=== PATIENT | female | born 1960 | race Caucasian/White ===

== ENCOUNTER 2017-03-27 13:09 | Emergency (ER) | payer MEDICAID ==
[~2017-03-27] VITALS: Ht 175.3 cm; Wt 86.2 kg
[~2017-03-27 13:09] MED LIST: AMOX-559 PO; CEFA-162 PO; CEFD300C35 PO; CEFI400C PO; CEFPR500PT GT; CEFPR500PT PO; CEFU500T10 PO; CEFU500T50 PO; CEP500 PO; CHO4 PO; CLIN300C99 PO; CLIN40CR11 VG; CREON; Creon; DOXY-179 PO; ERYT-108 PO; FLUC150T40 PO; GUAI1CAP PO; HYDR-4309 PO; IBUP600T22 PO; IVER3TAB; KET10 PO; LEV100 PO; LEVO-3 PO; LEVO-85 PO; LEVO100T95 PO; LIPA249C7 PO; LOR5/325 PO; Lipitor; MAGN296S36 PO; METHO500 PO; METR-160 PO; METR70GE2 PV; MINO100C27 PO; MIR; MORP-23 PO; MOX400 PO; Morphine; NA P133E22 RC; ONDA4TAB PO; PENI-24 PO; PERM60CR17 TP; PRE50 PO; PROSTAT AWC PO; TIZA-1 PO; TRA50 PO; Vicodin; ZYZAL; [UNRECOGNIZED DRUG - CODE] PO; [UNRECOGNIZED DRUG - CODE] PO; [UNRECOGNIZED DRUG - OTHER]
[2017-03-27] MEDS ORDERED: GUAI600T57 PO (13:25)
[2017-03-27] MEDS ORDERED: CHOL10005 PO (13:25)
--- NOTE | 2017-03-27 13:52 | ER Report ---
History and Physical Time Seen By MD: 13:51 Hx. of Stated Complaint: patient has multiple complaints. she is reporting a "bad rip" in a large tendon in her left leg. she is also reporting abdominal pain and a sinus infection HPI/ROS CHIEF COMPLAINT: multiple complaints: abdominal pain, sinus problems, dental pain, muscle injury to medial thigh of the left leg, foot injury where she is concerned about fracture, questions about nutritional supplements, thinks she has a yeast infection after taking some old antibiotics. HISTORY OF PRESENT ILLNESS: This is a 56 year old female. I have seen her multiple times in the past. She has multiple complaints. She talks nonstop and it's difficult to interrupt her. Pressured speech and very tangential moving from one topic to the other. The main thing she appears to be here for is a concern about ongoing sinus problems. She states that typical antibiotics don't work for this which she is told this in the past. She has been fired from multiple doctors and does not have a primary care she can see and has not been to see an ear nose and throat because she says that they can never find the sinus infection. She also has ongoing dental problems, her complaints today are very similar what she is complained about in the past. She wants antibiotics for the sinus infection and the dental problem. She has been having some increased pain in the upper maxillary dental area the last week or 2. She is requesting several different antibiotics, including Avelox, Vantin, and Cedax. She also says she has a muscular injury to the medial thigh of the left leg and is requesting some Robaxin. She fell the other day and her foot folded underneath her and she assures she has a crush injury there and wants an x-ray for fractures. She also questions me about getting some nutritional supplements and she also thinks she had a yeast infection and she did take about 3 pills of an old antibiotic she had left and now has some irritation and discharge in the vaginal area. She says that she has worsening abdominal pain, points to the right abdomen and then across to the left. Pain is off and on. Has had adhesions in the past. Bowels with loose stools a few days ago, no bowel movement in about 48 hours. She also states that her sinus problem sometimes make her left eye water. She does spend a lot of time perseverating on her old illnesses and the fact that her body is "resistant to multiple antibiotics." She has a totally positive review of systems as any systemic ask about she has multiple complaints. Allergies: Coded Allergies: Soy (Verified Allergy, Severe, INTESTINAL BLEEDING, KIDNEY SWELLING, ) Sulfa (Sulfonamide Antibiotics) (Verified Allergy, Severe, SWELLING LIPS, RASH, 04/30/16) iodine (Verified Allergy, Severe, SWELLS THROAT, 04/30/16) ciprofloxacin (Unverified Allergy, Intermediate, UNKNOWN, 04/30/16) alcohol (Verified Allergy, Mild, TIGHTNESS IN THROAT, 04/30/16) oxycodone (Unverified Allergy, Mild, 04/30/16) prochlorperazine (Verified Allergy, Mild, DIZZY, 04/30/16) promethazine (Verified Allergy, Mild, 04/30/16) Gadolinium-Containing Contrast Medi (Verified Allergy, Unknown, 04/30/16) misoprostol (Verified Allergy, Unknown, 04/30/16) Uncoded Allergies: EGGS (Allergy, Mild, SWELLING, 12/07/06) LETTUCE (Allergy, Mild, SWELLS LIVER, 12/07/06) PEANUTS (Allergy, Mild, ABD CRAMPS, 12/07/06) CADAVER PRODUCTS (Adverse Reaction, Intermediate, 01/18/15) Home Meds Active Scripts Scopolamine (TRANSDERM-SCOP) 1.5 Mg Patch, 1.5 MG TD ONCE, #3 PATCH Prov:EVERT RANDALL MD 03/27/17 Polymyxin B Sulf/Trimethoprim (POLYTRIM EYE DROPS) 10 Ml Drops, 10 ML OP TID for 5 Days, #1 BOTTLE Prov:EVERT RANDALL MD 03/27/17 Ketorolac Tromethamine (KETOROLAC TROMETHAMINE) 10 Mg Tab, 10 MG PO Q6H Y for PAIN, #12 TAB 0 Refills Prov:IVA CHAPA MD 03/27/17 Methocarbamol (ROBAXIN-750) 750 Mg Tablet, 750 MG PO TID Y for MUSCLE SPASMS, # 30 TAB 0 Refills Prov:IVA CHAPA MD 03/27/17 Cefpodoxime Proxetil (CEFPODOXIME PROXETIL) 200 Mg Tablet, 200 MG PO BID, #20 TAB 0 Refills Prov:IVA CHAPA MD 03/27/17 Fluconazole (DIFLUCAN) 150 Mg Tablet, 150 MG PO QDAY, #1 TAB 0 Refills Prov:IVA CHAPA MD 03/27/17 Reported Medications Cholecalciferol (Vitamin D3) (VITAMIN D3) 1,000 Unit Tablet, 1000 UNIT PO, TAB 03/27/17 Guaifenesin (MUCINEX) 600 Mg Tablet.er, 600 MG PO 03/27/17 Discontinued Scripts Minocycline Hcl (MINOCYCLINE HCL) 100 Mg Capsule, 100 MG PO BID for infection, # 20 CAPSULE Prov:CELSO DUARTE DO 04/30/16 Reviewed Nurses Notes: Yes Hx Smoking: No Smoking Status: Former Smoker Exposure to Second Hand Smoke?: No Hx Substance Use Disorder: No Hx Alcohol Use: No Constitutional Physical Exam General Appearance: The patient is alert. Talking with pressured speech and tangential similar to previous encounters. Eyes: Pupils are equal, round. No pallor, injection or icterus. ENT: Mucous membranes are moist. Some redness around the upper molars/premolars on the upper left. Posterior oropharynx is normal. Normal nasal mucosa. Normal tympanic membranes and canals. Neck: Supple and non tender. Respiratory: Breathing easily and unlabored. Lungs are clear to auscultation. Cardiovascular: Regular rate and rhythm. No murmurs, gallops or rubs. Normal capillary refill. Gastrointestinal: Pain diffuse with palpation, no focal tenderness. Guarding everywhere, no rebound. Normal bowel sounds. Neurological: Alert and oriented x3. Normal sensation in the feel/lower extremities bilaterally. Skin: Warm and dry. Musculoskeletal: Tender throughout the left foot, but non-focal. Tender medial left thigh. No other tenderness in the left leg. Full range of motion. DIFFERENTIAL DIAGNOSIS: After history and physical exam, differential diagnosis was considered for a patient with multiple complaints. We will check an x-ray of the left foot. We can give her Robaxin for her leg strain. Discussed doing an abdominal x-ray, but patient wants a CT scan, so we can do this. Will treat dental changes noted on left upper area as noted. Medical Decision Making Data Points Laboratory Hematology Test 03/27/17 14:29 03/27/17 14:39 03/27/17 16:30 Red Blood Count 4.70 M/uL (4.17-5.56) Mean Corpuscular Volume 89.2 fL (80.0-96.0) Mean Corpuscular Hemoglobin 30.5 pg (26.0-33.0) Mean Corpuscular Hemoglobin Concent 34.2 g/dL (32.0-36.0) Red Cell Distribution Width 13.5 % (11.5-14.5) Mean Platelet Volume 8.7 fL (7.2-11.1) Neutrophils (%) (Auto) 63.7 % (39.4-72.5) Lymphocytes (%) (Auto) 27.1 % (17.6-49.6) Monocytes (%) (Auto) 5.4 % (4.1-12.4) Eosinophils (%) (Auto) 2.6 % (0.4-6.7) Basophils (%) (Auto) 1.2 % (0.3-1.4) Nucleated RBC Relative Count (auto) 0.0 /100WBC Neutrophils # (Auto) 4.0 K/uL (2.0-7.4) Lymphocytes # (Auto) 1.7 K/uL (1.3-3.6) Monocytes # (Auto) 0.3 K/uL (0.3-1.0) Eosinophils # (Auto) 0.2 K/uL (0.0-0.5) Basophils # (Auto) 0.1 K/uL (0.0-0.1) Nucleated RBC Absolute Count (auto) 0.00 K/uL Sodium Level 140 mmol/L (137-145) Potassium Level 4.1 mmol/L (3.5-5.0) Chloride Level 102 mmol/L (98-107) Carbon Dioxide Level 24 mmol/L (22-31) Blood Urea Nitrogen 19 mg/dl (7-18) Creatinine 0.90 mg/dl (0.52-1.04) Glomerular Filtration Rate Calc > 60.0 Random Glucose 91 mg/dl (75-110) Calcium Level 9.2 mg/dl (8.4-10.2) Total Bilirubin 0.6 mg/dl (0.2-1.3) Aspartate Amino Transf (AST/SGOT) 35 U/L (0-35) Alanine Aminotransferase (ALT/SGPT) 79 U/L (0-56) Alkaline Phosphatase 87 U/L (0-126) Total Protein 7.6 gm/dl (6.3-8.2) Albumin 4.4 g/dl (3.5-5.0) Urine Color Yellow Urine Clarity Clear Urine pH 5.0 pH (4.8-9.5) Urine Specific [place] 1.006 Urine Protein Negative mg/dL (NEGATIVE) Urine Glucose (UA) Negative mg/dL (NEGATIVE) Urine Ketones Negative mg/dL (NEGATIVE) Urine Blood Small (NEGATIVE) Urine Nitrite Negative (NEGATIVE) Urine Bilirubin Negative (NEGATIVE) Urine Urobilinogen Negative mg/dL (0.2-1.9) Urine Leukocyte Esterase Negative (NEGATIVE) Urine RBC 1 /HPF (0-2/HPF) Urine WBC None /HPF (0-5/HPF) Urine Squamous Epithelial Cells Few /LPF (</=FEW) Urine Bacteria Negative /HPF (NONE-FEW) Urine Mucus None /HPF (NONE-FEW) Influenza Virus Type A (PCR) Negative (NEGATIVE) Influenza Virus Type B (PCR) Negative (NEGATIVE) Chemistry Test 03/27/17 14:29 03/27/17 14:39 03/27/17 16:30 White Blood Count 6.2 k/uL (4.5-11.0) Red Blood Count 4.70 M/uL (4.17-5.56) Hemoglobin 14.3 g/dL (12.0-16.0) Hematocrit 41.9 % (34.0-47.0) Mean Corpuscular Volume 89.2 fL (80.0-96.0) Mean Corpuscular Hemoglobin 30.5 pg (26.0-33.0) Mean Corpuscular Hemoglobin Concent 34.2 g/dL (32.0-36.0) Red Cell Distribution Width 13.5 % (11.5-14.5) Platelet Count 260 K/uL (150-450) Mean Platelet Volume 8.7 fL (7.2-11.1) Neutrophils (%) (Auto) 63.7 % (39.4-72.5) Lymphocytes (%) (Auto) 27.1 % (17.6-49.6) Monocytes (%) (Auto) 5.4 % (4.1-12.4) Eosinophils (%) (Auto) 2.6 % (0.4-6.7) Basophils (%) (Auto) 1.2 % (0.3-1.4) Nucleated RBC Relative Count (auto) 0.0 /100WBC Neutrophils # (Auto) 4.0 K/uL (2.0-7.4) Lymphocytes # (Auto) 1.7 K/uL (1.3-3.6) Monocytes # (Auto) 0.3 K/uL (0.3-1.0) Eosinophils # (Auto) 0.2 K/uL (0.0-0.5) Basophils # (Auto) 0.1 K/uL (0.0-0.1) Nucleated RBC Absolute Count (auto) 0.00 K/uL Glomerular Filtration Rate Calc > 60.0 Calcium Level 9.2 mg/dl (8.4-10.2) Total Bilirubin 0.6 mg/dl (0.2-1.3) Aspartate Amino Transf (AST/SGOT) 35 U/L (0-35) Alanine Aminotransferase (ALT/SGPT) 79 U/L (0-56) Alkaline Phosphatase 87 U/L (0-126) Total Protein 7.6 gm/dl (6.3-8.2) Albumin 4.4 g/dl (3.5-5.0) Urine Color Yellow Urine Clarity Clear Urine pH 5.0 pH (4.8-9.5) Urine Specific [place] 1.006 Urine Protein Negative mg/dL (NEGATIVE) Urine Glucose (UA) Negative mg/dL (NEGATIVE) Urine Ketones Negative mg/dL (NEGATIVE) Urine Blood Small (NEGATIVE) Urine Nitrite Negative (NEGATIVE) Urine Bilirubin Negative (NEGATIVE) Urine Urobilinogen Negative mg/dL (0.2-1.9) Urine Leukocyte Esterase Negative (NEGATIVE) Urine RBC 1 /HPF (0-2/HPF) Urine WBC None /HPF (0-5/HPF) Urine Squamous Epithelial Cells Few /LPF (</=FEW) Urine Bacteria Negative /HPF (NONE-FEW) Urine Mucus None /HPF (NONE-FEW) Influenza Virus Type A (PCR) Negative (NEGATIVE) Influenza Virus Type B (PCR) Negative (NEGATIVE) Urinalysis Test 03/27/17 14:39 Urine Color Yellow Urine Clarity Clear Urine pH 5.0 pH (4.8-9.5) Urine Specific [place] 1.006 Urine Protein Negative mg/dL (NEGATIVE) Urine Glucose (UA) Negative mg/dL (NEGATIVE) Urine Ketones Negative mg/dL (NEGATIVE) Urine Blood Small (NEGATIVE) Urine Nitrite Negative (NEGATIVE) Urine Bilirubin Negative (NEGATIVE) Urine Urobilinogen Negative mg/dL (0.2-1.9) Urine Leukocyte Esterase Negative (NEGATIVE) Urine RBC 1 /HPF (0-2/HPF) Urine WBC None /HPF (0-5/HPF) Urine Squamous Epithelial Cells Few /LPF (</=FEW) Urine Bacteria Negative /HPF (NONE-FEW) Urine Mucus None /HPF (NONE-FEW) EKG/Imaging Imaging COMPUTED TOMOGRAPHY OF THE Abdomen and Pelvis without CONTRAST INDICATION: Left upper abdominal pain. TECHNIQUE: Contiguous axial 3.[address] images were obtained through the abdomen and pelvis without contrast. Coronal and sagittal reformatted images were submitted. COMPARISON: CT of January 06, 2012. FINDINGS: Lung bases: The lung bases are clear. Liver and hepatic vasculature: No apparent lesion on this noncontrast study. No ascites. Gallbladder and bile ducts: Normal gallbladder. Spleen: Normal spleen. Pancreas: Normal pancreas. Adrenals: Normal adrenals. Kidneys, ureters and bladder: A punctate calcification within or adjacent to the downstream left ureter on axial image 128 of series 2 could be a very small calculus (1-2 mm) versus a phlebolith. There are otherwise no urinary tract calculi. Normal-appearing bladder. No collecting system obstruction. Retroperitoneum and aorta: Mild aortic atherosclerosis. GI tract, mesentery and peritoneum: No bowel obstruction. No free fluid or free air. Normal appendix. There are a few diverticula but no findings of diverticulitis. Uterus and adnexa: Unremarkable uterus. Bones and soft tissues: No acute osseous abnormality. Anterior fusion hardware spans L5-S1. Posterior fusion hardware spans the same level. IMPRESSION: 1. A tiny calculus within or adjacent to the downstream left ureter could potentially be a nonobstructive stone versus a phlebolith. 2. Diverticulosis without findings of diverticulitis. 3. Normal appendix. One of the following dose optimization techniques was utilized in the performance of this exam: Automated exposure control; adjustment of the mA and/ or kV according to the patient's size; or use of an iterative reconstruction technique. Specific details can be referenced in the facility's radiology CT exam operational policy. Report Dictated By: Francisco Cannon MD at 03/27/2017 3:48 PM INDICATION: foot injury. DATE: 03/27/2017 3:43 PM. TECHNIQUE: FOOT 3 VIEW LEFT COMPARISON: None FINDINGS: Normal alignment without fracture or dislocation. Mild degenerative change at the first MTP joint. IMPRESSION: No evidence of fracture or dislocation. Report Dictated By: Francisco Cannon MD at 03/27/2017 3:43 PM ED Course/Re-evaluation ED Course Reviewed the x-ray results. Reviewed CT results as noted. Patient was given a shot of Rocephin and followed by a course of Cedax. Robaxin for muscle strain. Toradol for pain. Patient wanted to talk about other problems, but based on critical patients in the ER I did not have more time and had already spent large amount of time on non-urgent problems. She is discharged with these medicines. Also provided a prescription for diflucan. Patient initially refused to leave, but then left and checked right back in at admitting. Decision to Disposition Date: Mar 27, 2017 Decision to Disposition Time: 16:41 Depart Departure Latest Vital Signs Impression: Primary Impression: Abdominal pain Additional Impressions: Chronic urethritis Pain, dental Strain of foot, left Muscle strain of left thigh Condition: Improved Disposition: HOME OR SELF-CARE New Scripts Ketorolac Tromethamine (KETOROLAC TROMETHAMINE) 10 Mg Tab 10 MG PO Q6H Y for PAIN, #12 TAB 0 Refills Prov: IVA CHAPA MD 03/27/17 Methocarbamol (ROBAXIN-750) 750 Mg Tablet 750 MG PO TID Y for MUSCLE SPASMS, #30 TAB 0 Refills Prov: IVA CHAPA MD 03/27/17 Cefpodoxime Proxetil (CEFPODOXIME PROXETIL) 200 Mg Tablet 200 MG PO BID, #20 TAB 0 Refills Prov: IVA CHAPA MD 03/27/17 Fluconazole (DIFLUCAN) 150 Mg Tablet 150 MG PO QDAY, #1 TAB 0 Refills Prov: IVA CHAPA MD 03/27/17 Patient Instructions: Abdominal Pain (ED), Muscle Strain (ED) Additional Instructions: Take the antibiotic Vantin 200mg twice a day for 10 days. Take the antifungal medicine Diflucan 150mg one dose. For the leg and foot pain: Robaxin 750mg three times a day as needed for spasm and pain. Toradol 10mg, one every 6 hours as needed for pain. Problem Qualifiers Primary Impression: Abdominal pain Abdominal location: generalized Qualified Codes: R10.84 - Generalized abdominal pain Additional Impressions: Strain of foot, left Encounter type: initial encounter Qualified Codes: S96.912A - Strain of unspecified muscle and tendon at ankle and foot level, left foot, initial encounter Muscle strain of left thigh Encounter type: initial encounter Qualified Codes: S76.912A - Strain of unspecified muscles, fascia and tendons at thigh level, left thigh, initial encounter IVA CHAPA MD Mar 27, 2017 13:51
[2017-03-27 14:44] LABS: PLATELET COUNT, AUTOMATED 260 K/uL (150-450)
--- NOTE | 2017-03-27 15:52 | RADIOLOGY IMAGING REPORT ---
FACILITY: [facility] - [place] PATIENT NAME: Charo Block : 1960 MR: [id number] V: [id number] EXAM DATE: ORDERING PHYSICIAN: IVA CHAPA TECHNOLOGIST: Location: [facility] Patient: Charo Block : 1960 Visit/Account:[id number] Date of Sevice: 03/27/2017 INDICATION: foot injury. DATE: 03/27/2017 3:43 PM. TECHNIQUE: FOOT 3 VIEW LEFT COMPARISON: None FINDINGS: Normal alignment without fracture or dislocation. Mild degenerative change at the first MTP joint. IMPRESSION: No evidence of fracture or dislocation. Report Dictated By: Francisco Cannon MD at 03/27/2017 3:43 PM Report E-Signed By: Francisco Cannon MD at 03/27/2017 3:47 PM WSN:[id number]
--- NOTE | 2017-03-27 16:09 | RADIOLOGY IMAGING REPORT ---
FACILITY: [facility] - [place] PATIENT NAME: Charo Block : 1960 MR: [id number] V: [id number] EXAM DATE: ORDERING PHYSICIAN: IVA CHAPA TECHNOLOGIST: Location: [facility] Patient: Charo Block : 1960 Visit/Account:[id number] Date of Sevice: 03/27/2017 COMPUTED TOMOGRAPHY OF THE Abdomen and Pelvis without CONTRAST INDICATION: Left upper abdominal pain. TECHNIQUE: Contiguous axial 3.[address] images were obtained through the abdomen and pelvis without co ntrast. Coronal and sagittal reformatted images were submitted. COMPARISON: CT of January 06, 2012. FINDINGS: Lung bases: The lung bases are clear. Liver and hepatic vasculature: No apparent lesion on this noncontrast study. No ascites. Gallbladder and bile ducts: Normal gallbladder. Spleen: Normal spleen. Pancreas: Normal pancreas. Adrenals: Normal adrenals. Kidneys, ureters and bladder: A punctate calcification within or adjacent to the downstream left ure ter on axial image 128 of series 2 could be a very small calculus (1-2 mm) versus a phlebolith. There are otherwise no urinary tract calculi. Normal-appearing bladder. No collecting system obstruction. Retroperitoneum and aorta: Mild aortic atherosclerosis. GI tract, mesentery and peritoneum: No bowel obstruction. No free fluid or free air. Normal appendix. There are a few diverticula but no findings of diverticulitis. Uterus and adnexa: Unremarkable uterus. Bones and soft tissues: No acute osseous abnormality. Anterior fusion hardware spans L5-S1. Posterior fusion hardware spans the same level. IMPRESSION: 1. A tiny calculus within or adjacent to the downstream left ureter could potentially be a nonobstruc tive stone versus a phlebolith. 2. Diverticulosis without findings of diverticulitis. 3. Normal appendix. One of the following dose optimization techniques was utilized in the performance of this exam: Autom ated exposure control; adjustment of the mA and/or kV according to the patient's size; or use of an i terative reconstruction technique. Specific details can be referenced in the facility's radiology C T exam operational policy. Report Dictated By: Francisco Cannon MD at 03/27/2017 3:48 PM Report E-Signed By: Francisco Cannon MD at 03/27/2017 4:05 PM WSN:[id number]
[2017-03-27] MEDS ORDERED: FLUC150T40 PO (16:51)
[2017-03-27] MEDS ORDERED: METH-543 PO (16:51)
[2017-03-27] MEDS ORDERED: CEFP200T18 PO (16:51)
[2017-03-27] MEDS ORDERED: KET10 PO (16:51)
[2017-03-27 17:45] VITALS: BP 156/94
[2017-03-27] MEDS ORDERED: cefTRIAXone 1 GM VIAL IM ONE (17:50)
[2017-03-27] MEDS ORDERED: POLY10DR20 OP (18:48)
[2017-03-27] MEDS ORDERED: SCOT TD (18:48)
== END 2017-03-27 18:00 | disposition home or self-care (01) ==
LOC: ER 13:26
DX: R10.12 Left upper quadrant pain (principal); N34.2 Other urethritis; K08.89 Other specified disorders of teeth and supporting structures; S96.912A Strain of unspecified muscle and tendon at ankle and foot level, left foot, initial encounter; S76.912A Strain of unspecified muscles, fascia and tendons at thigh level, left thigh, initial encounter
CPT/HCPCS: 73630; 74176; 81001; 85025; 87502; 99284; J0696; 82040; 82247; 82310; 82374; 82435; 82565; 82947; 84075; 84132; 84155; 84295; 84450; 84460; 84520; 99282

== ENCOUNTER 2017-03-27 18:00 | Emergency (ER) | payer MEDICAID ==
[~2017-03-27 18:00] MED LIST changes: +CEFP200T18 PO; +CHOL10005 PO; +GUAI600T57 PO; +METH-543 PO
[2017-03-27] MEDS ORDERED: POLY10DR20 OP (18:48)
[2017-03-27] MEDS ORDERED: SCOT TD (18:48)
--- NOTE | 2017-03-27 18:49 | ER Report ---
History and Physical Time Seen By MD: 18:39 HPI/ROS CHIEF COMPLAINT: Left eye discomfort HISTORY OF PRESENT ILLNESS: Patient complains of left eye discomfort. She says is giving her vertigo. She believes she has conjunctivitis. She says Polytrim eye ointment has worked well in the past. She states she's been to the eye doctor multiple times for the same. She is not feeling like she can go to the eye doctor tomorrow because the discomfort is so severe. She denies foreign body exposure. She was here earlier today for different complaints and stated she forgot to address this complaint. No other concerns or complaints today. No vision loss. REVIEW OF SYSTEMS: Respiratory: No cough, no dyspnea. Cardiovascular: No chest pain, no palpitations. Gastrointestinal: No vomiting, no abdominal pain. Musculoskeletal: No back pain. Allergies: Coded Allergies: Soy (Verified Allergy, Severe, INTESTINAL BLEEDING, KIDNEY SWELLING, ) Sulfa (Sulfonamide Antibiotics) (Verified Allergy, Severe, SWELLING LIPS, RASH, 04/30/16) iodine (Verified Allergy, Severe, SWELLS THROAT, 04/30/16) ciprofloxacin (Unverified Allergy, Intermediate, UNKNOWN, 04/30/16) alcohol (Verified Allergy, Mild, TIGHTNESS IN THROAT, 04/30/16) oxycodone (Unverified Allergy, Mild, 04/30/16) prochlorperazine (Verified Allergy, Mild, DIZZY, 04/30/16) promethazine (Verified Allergy, Mild, 04/30/16) Gadolinium-Containing Contrast Medi (Verified Allergy, Unknown, 04/30/16) misoprostol (Verified Allergy, Unknown, 04/30/16) Uncoded Allergies: EGGS (Allergy, Mild, SWELLING, 12/07/06) LETTUCE (Allergy, Mild, SWELLS LIVER, 12/07/06) PEANUTS (Allergy, Mild, ABD CRAMPS, 12/07/06) CADAVER PRODUCTS (Adverse Reaction, Intermediate, 01/18/15) Home Meds Active Scripts Ketorolac Tromethamine (KETOROLAC TROMETHAMINE) 10 Mg Tab, 10 MG PO Q6H Y for PAIN, #12 TAB 0 Refills Prov:IVA CHAPA MD 03/27/17 Methocarbamol (ROBAXIN-750) 750 Mg Tablet, 750 MG PO TID Y for MUSCLE SPASMS, # 30 TAB 0 Refills Prov:IVA CHAPA MD 03/27/17 Cefpodoxime Proxetil (CEFPODOXIME PROXETIL) 200 Mg Tablet, 200 MG PO BID, #20 TAB 0 Refills Prov:IVA CHAPA MD 03/27/17 Fluconazole (DIFLUCAN) 150 Mg Tablet, 150 MG PO QDAY, #1 TAB 0 Refills Prov:IVA CHAPA MD 03/27/17 Reported Medications Cholecalciferol (Vitamin D3) (VITAMIN D3) 1,000 Unit Tablet, 1000 UNIT PO, TAB 03/27/17 Guaifenesin (MUCINEX) 600 Mg Tablet.er, 600 MG PO 03/27/17 Discontinued Scripts Minocycline Hcl (MINOCYCLINE HCL) 100 Mg Capsule, 100 MG PO BID for infection, # 20 CAPSULE Prov:CELSO DUARTE DO 04/30/16 Hx Smoking: No Smoking Status: Former Smoker Exposure to Second Hand Smoke?: No Hx Substance Use Disorder: No Hx Alcohol Use: No Physical Exam General Appearance: The patient is alert, has no immediate need for airway protection and no current signs of toxicity. No acute distress Eyes: Pupils equal and round no injection. No discharge. Fluorescein stain with Wood lamp was performed Respiratory: Chest is non tender, lungs are clear to auscultation. Cardiac: regular rate and rhythm no murmurs gallops or rubs Gastrointestinal: Abdomen is soft and non tender, no masses, bowel sounds normal. Musculoskeletal: Neck: Neck is supple and non tender. Extremities have full range of motion and are non tender. Skin: No rashes or lesions. Otherwise negative Neuro: Normal no dysmetria, normal gait DIFFERENTIAL DIAGNOSIS: After history and physical exam differential diagnosis was considered for conjunctivitis, sunburn, keratitis, viral versus bacterial. No signs of stroke or other serious intracranial process Medical Decision Making ED Course/Re-evaluation ED Course Eye exam performed and risk benefits of antibiotic eyedrops was discussed home medication use follow-up with ophthalmology as needed follow-up with PCP reasons to return were discussed Decision to Disposition Date: Mar 27, 2017 Decision to Disposition Time: 18:45 Depart Departure Impression: Primary Impression: Conjunctivitis, left eye Condition: Improved Disposition: HOME OR SELF-CARE New Scripts Scopolamine (TRANSDERM-SCOP) 1.5 Mg Patch 1.5 MG TD ONCE, #3 PATCH Prov: EVERT RANDALL MD 03/27/17 Polymyxin B Sulf/Trimethoprim (POLYTRIM EYE DROPS) 10 Ml Drops 10 ML OP TID for 5 Days, #1 BOTTLE Prov: EVERT RANDALL MD 03/27/17 Patient Instructions: Conjunctivitis (ED), Vertigo (ED) EVERT RANDALL MD Mar 27, 2017 18:49
[2017-03-27] MEDS ORDERED: PROPARACAINE 0.5% OP 15ML BTL OD ONE (18:50)
[2017-03-27] MEDS ORDERED: FLUORESCEIN SOD 1 MG 1 EA STRP OD ONE (18:50)
== END 2017-03-27 19:03 | disposition home or self-care (01) ==
LOC: ER 18:39
DX: H10.9 Unspecified conjunctivitis (principal)
CPT/HCPCS: 99282

== ENCOUNTER 2017-08-03 19:00 | Emergency (ER) | payer MEDICAID ==
[~2017-08-03 19:00] MED LIST changes: +POLY10DR20 OP; +SCOT TD
--- NOTE | 2017-08-03 19:15 | ER Report ---
History and Physical Time Seen By MD: 19:14 Hx. of Stated Complaint: PATIENT STATES THAT FELL WHILE HIKING/RUNNING TOO FAST 2 DAYS AGO; KIDNEYS, RT ARM AND WRIST HPI/ROS CHIEF COMPLAINT: head injury and fall HISTORY OF PRESENT ILLNESS: This is a 56 year old female. She had a head injury a few days ago. She was stretching a large bungee cord, about 7 feet, when the opposite end gave way and flew back and hit her in the head. She has had severe headache, nausea and dizziness since then. She had a small laceration on her frontal scalp from this as well. She is worried about fragments of bone going into her brain. Two days ago she had stopped her car to look at a beautiful sunset and heard a loud sound which startled her and she was running back to her car when she fell. She landed on her right side, arm tucked in by her ribs. Since then she is having right upper arm pain, right wrist pain, right rib pain , and flank pain. She says she has had broken ribs in the past and she does have some pain with breathing. She is more concerned that she has a kidney or liver laceration. She is requesting labs to look at this as well as imaging. She also tells me about recent dental problems she has been having, sinus problems (requesting an antibiotic), and some nutritional problems, parasitic infection from the [facility], and loss of villi in the intestines and nail problems associated with this. She has been treating this with some veterinary antifungals that she got as well as some courses of antibiotics she obtained from several doctors as well, and says that this seems to be improving. Allergies: Coded Allergies: Soy (Verified Allergy, Severe, INTESTINAL BLEEDING, KIDNEY SWELLING, ) Sulfa (Sulfonamide Antibiotics) (Verified Allergy, Severe, SWELLING LIPS, RASH, 04/30/16) iodine (Verified Allergy, Severe, SWELLS THROAT, 04/30/16) ciprofloxacin (Unverified Allergy, Intermediate, UNKNOWN, 04/30/16) alcohol (Verified Allergy, Mild, TIGHTNESS IN THROAT, 04/30/16) oxycodone (Unverified Allergy, Mild, 04/30/16) prochlorperazine (Verified Allergy, Mild, DIZZY, 04/30/16) promethazine (Verified Allergy, Mild, 04/30/16) Gadolinium-Containing Contrast Medi (Verified Allergy, Unknown, 04/30/16) misoprostol (Verified Allergy, Unknown, 04/30/16) Uncoded Allergies: EGGS (Allergy, Mild, SWELLING, 12/07/06) LETTUCE (Allergy, Mild, SWELLS LIVER, 12/07/06) PEANUTS (Allergy, Mild, ABD CRAMPS, 12/07/06) CADAVER PRODUCTS (Adverse Reaction, Intermediate, 01/18/15) Home Meds Active Scripts Moxifloxacin Hcl (AVELOX) 400 Mg Tab, 400 MG PO QDAY for 10 Days, #10 TAB 0 Refills Prov:IVA CHAPA MD 08/03/17 Methocarbamol (ROBAXIN-750) 750 Mg Tablet, 750 MG PO TID Y for MUSCLE SPASMS, # 30 TAB 0 Refills Prov:IVA CHAPA MD 08/03/17 Hydrocodone Bit/Acetaminophen (HYDROCODON-ACETAMINOPHEN 5-325) 1 Each Tablet, 1 EACH PO Q4H Y for PAIN, #12 TAB 0 Refills Prov:IVA CHAPA MD 08/03/17 Scopolamine (TRANSDERM-SCOP) 1.5 Mg Patch, 1.5 MG TD ONCE, #3 PATCH Prov:EVERT RANDALL MD 03/27/17 Polymyxin B Sulf/Trimethoprim (POLYTRIM EYE DROPS) 10 Ml Drops, 10 ML OP TID for 5 Days, #1 BOTTLE Prov:EVERT RANDALL MD 03/27/17 Ketorolac Tromethamine (KETOROLAC TROMETHAMINE) 10 Mg Tab, 10 MG PO Q6H Y for PAIN, #12 TAB 0 Refills Prov:IVA CHAPA MD 03/27/17 Methocarbamol (ROBAXIN-750) 750 Mg Tablet, 750 MG PO TID Y for MUSCLE SPASMS, # 30 TAB 0 Refills Prov:IVA CHAPA MD 03/27/17 Cefpodoxime Proxetil (CEFPODOXIME PROXETIL) 200 Mg Tablet, 200 MG PO BID, #20 TAB 0 Refills Prov:IVA CHAPA MD 03/27/17 Fluconazole (DIFLUCAN) 150 Mg Tablet, 150 MG PO QDAY, #1 TAB 0 Refills Prov:IVA CHAPA MD 03/27/17 Reported Medications Cholecalciferol (Vitamin D3) (VITAMIN D3) 1,000 Unit Tablet, 1000 UNIT PO, TAB 03/27/17 Guaifenesin (MUCINEX) 600 Mg Tablet.er, 600 MG PO 03/27/17 Reviewed Nurses Notes: Yes Hx Smoking: No Smoking Status: Former Smoker Exposure to Second Hand Smoke?: No Hx Substance Use Disorder: No Hx Alcohol Use: No Constitutional Vital Sign - Last 24 Hours 08/03/17 08/03/17 08/03/17 08/03/17 19:06 19:08 19:10 19:30 Temp 98.0 Pulse 79 Resp 18 B/P (MAP) 169/120 (136) 170/104 (126) 203/144 (163) Pulse Ox 95 O2 Delivery Room Air 08/03/17 08/03/17 08/03/17 08/03/17 20:00 20:30 21:12 21:30 Pulse 73 73 72 B/P (MAP) 161/92 (115) 173/96 (121) 171/107 (128) 168/103 (124) Pulse Ox 98 96 97 08/03/17 08/03/17 21:35 22:24 Pulse 72 B/P (MAP) 150/100 (117) Pulse Ox 93 Physical Exam General Appearance: The patient is alert. No acute distress. Eyes: Pupils are equal, round. No pallor, injection or icterus. ENT: Mucous membranes are moist. Head/scalp: She does have a slight laceration which is healing well, no signs of infection. This is on the frontal scalp just to the left of midline. Respiratory: The patient does have some pain on the right lateral chest wall, pain to take deep breaths. Cardiovascular: Regular rate and rhythm. No murmurs, gallops or rubs. Gastrointestinal: Abdomen is soft, has some tenderness in the right flank as well as right upper abdominal area. Nondistended. Guarding. Neurological: Alert and oriented x3. Skin: Warm and dry. Musculoskeletal: Patient does have some pain in the right mid humerus. Also pain in the right wrist and the radial aspect. DIFFERENTIAL DIAGNOSIS: After history and physical exam, differential diagnosis was considered for patient with a head injury, and a fall recently. We discussed doing a CT scan and x-rays. Medical Decision Making Data Points Result Diagram: 08/03/17195408/03/171954 Laboratory Hematology Test 08/03/17 19:45 08/03/17 19:55 Urine Color Straw Urine Clarity Clear Urine pH 7.0 pH (4.8-9.5) Urine Specific [place] 1.005 Urine Protein Negative mg/dL (NEGATIVE) Urine Glucose (UA) Negative mg/dL (NEGATIVE) Urine Ketones Negative mg/dL (NEGATIVE) Urine Blood Small (NEGATIVE) Urine Nitrite Negative (NEGATIVE) Urine Bilirubin Negative (NEGATIVE) Urine Urobilinogen Negative mg/dL (0.2-1.9) Urine Leukocyte Esterase Trace (NEGATIVE) Urine RBC 1 /HPF (0-2/HPF) Urine WBC <1 /HPF (0-5/HPF) Urine Squamous Epithelial Cells Moderate /LPF (</=FEW) Urine Bacteria Negative /HPF (NONE-FEW) Urine Mucus None /HPF (NONE-FEW) Red Blood Count 5.05 M/uL (4.17-5.56) Mean Corpuscular Volume 87.1 fL (80.0-96.0) Mean Corpuscular Hemoglobin 30.0 pg (26.0-33.0) Mean Corpuscular Hemoglobin Concent 34.5 g/dL (32.0-36.0) Red Cell Distribution Width 13.5 % (11.5-14.5) Mean Platelet Volume 8.5 fL (7.2-11.1) Neutrophils (%) (Auto) 63.4 % (39.4-72.5) Lymphocytes (%) (Auto) 27.0 % (17.6-49.6) Monocytes (%) (Auto) 6.2 % (4.1-12.4) Eosinophils (%) (Auto) 2.1 % (0.4-6.7) Basophils (%) (Auto) 1.3 % (0.3-1.4) Nucleated RBC Relative Count (auto) 0.0 /100WBC Neutrophils # (Auto) 3.9 K/uL (2.0-7.4) Lymphocytes # (Auto) 1.7 K/uL (1.3-3.6) Monocytes # (Auto) 0.4 K/uL (0.3-1.0) Eosinophils # (Auto) 0.1 K/uL (0.0-0.5) Basophils # (Auto) 0.1 K/uL (0.0-0.1) Nucleated RBC Absolute Count (auto) 0.00 K/uL Sodium Level 140 mmol/L (137-145) Potassium Level 3.7 mmol/L (3.5-5.0) Chloride Level 103 mmol/L (98-107) Carbon Dioxide Level 27 mmol/L (22-31) Blood Urea Nitrogen 16 mg/dl (7-18) Creatinine 0.90 mg/dl (0.52-1.04) Glomerular Filtration Rate Calc > 60.0 Random Glucose 105 mg/dl (75-110) Calcium Level 10.1 mg/dl (8.4-10.2) Total Bilirubin 0.6 mg/dl (0.2-1.3) Aspartate Amino Transf (AST/SGOT) 25 U/L (0-35) Alanine Aminotransferase (ALT/SGPT) 36 U/L (0-56) Alkaline Phosphatase 66 U/L (0-126) Total Protein 7.5 g/dl (6.3-8.2) Albumin 4.3 g/dl (3.5-5.0) Chemistry Test 08/03/17 19:45 08/03/17 19:55 Urine Color Straw Urine Clarity Clear Urine pH 7.0 pH (4.8-9.5) Urine Specific [place] 1.005 Urine Protein Negative mg/dL (NEGATIVE) Urine Glucose (UA) Negative mg/dL (NEGATIVE) Urine Ketones Negative mg/dL (NEGATIVE) Urine Blood Small (NEGATIVE) Urine Nitrite Negative (NEGATIVE) Urine Bilirubin Negative (NEGATIVE) Urine Urobilinogen Negative mg/dL (0.2-1.9) Urine Leukocyte Esterase Trace (NEGATIVE) Urine RBC 1 /HPF (0-2/HPF) Urine WBC <1 /HPF (0-5/HPF) Urine Squamous Epithelial Cells Moderate /LPF (</=FEW) Urine Bacteria Negative /HPF (NONE-FEW) Urine Mucus None /HPF (NONE-FEW) White Blood Count 6.2 k/uL (4.5-11.0) Red Blood Count 5.05 M/uL (4.17-5.56) Hemoglobin 15.2 g/dL (12.0-16.0) Hematocrit 44.0 % (34.0-47.0) Mean Corpuscular Volume 87.1 fL (80.0-96.0) Mean Corpuscular Hemoglobin 30.0 pg (26.0-33.0) Mean Corpuscular Hemoglobin Concent 34.5 g/dL (32.0-36.0) Red Cell Distribution Width 13.5 % (11.5-14.5) Platelet Count 256 K/uL (150-450) Mean Platelet Volume 8.5 fL (7.2-11.1) Neutrophils (%) (Auto) 63.4 % (39.4-72.5) Lymphocytes (%) (Auto) 27.0 % (17.6-49.6) Monocytes (%) (Auto) 6.2 % (4.1-12.4) Eosinophils (%) (Auto) 2.1 % (0.4-6.7) Basophils (%) (Auto) 1.3 % (0.3-1.4) Nucleated RBC Relative Count (auto) 0.0 /100WBC Neutrophils # (Auto) 3.9 K/uL (2.0-7.4) Lymphocytes # (Auto) 1.7 K/uL (1.3-3.6) Monocytes # (Auto) 0.4 K/uL (0.3-1.0) Eosinophils # (Auto) 0.1 K/uL (0.0-0.5) Basophils # (Auto) 0.1 K/uL (0.0-0.1) Nucleated RBC Absolute Count (auto) 0.00 K/uL Glomerular Filtration Rate Calc > 60.0 Calcium Level 10.1 mg/dl (8.4-10.2) Total Bilirubin 0.6 mg/dl (0.2-1.3) Aspartate Amino Transf (AST/SGOT) 25 U/L (0-35) Alanine Aminotransferase (ALT/SGPT) 36 U/L (0-56) Alkaline Phosphatase 66 U/L (0-126) Total Protein 7.5 g/dl (6.3-8.2) Albumin 4.3 g/dl (3.5-5.0) Urinalysis Test 08/03/17 19:45 Urine Color Straw Urine Clarity Clear Urine pH 7.0 pH (4.8-9.5) Urine Specific [place] 1.005 Urine Protein Negative mg/dL (NEGATIVE) Urine Glucose (UA) Negative mg/dL (NEGATIVE) Urine Ketones Negative mg/dL (NEGATIVE) Urine Blood Small (NEGATIVE) Urine Nitrite Negative (NEGATIVE) Urine Bilirubin Negative (NEGATIVE) Urine Urobilinogen Negative mg/dL (0.2-1.9) Urine Leukocyte Esterase Trace (NEGATIVE) Urine RBC 1 /HPF (0-2/HPF) Urine WBC <1 /HPF (0-5/HPF) Urine Squamous Epithelial Cells Moderate /LPF (</=FEW) Urine Bacteria Negative /HPF (NONE-FEW) Urine Mucus None /HPF (NONE-FEW) EKG/Imaging Imaging EXAMINATION: Right wrist, 3 views 08/03/2017 7:37 PM HISTORY: fall, right upper arm and wrist pain COMPARISON: 01/18/2015. Right hand 03/17/2015 FINDINGS: Visualized bony structures are intact and anatomically aligned without fracture or other acute osseous abnormality evident. Minimal spurring along the first CMC. IMPRESSION: No acute bony injury. Report Dictated By: Jamie Kim MD at 08/03/2017 8:35 PM EXAMINATION: Right humerus, 2 views 08/03/2017 7:37 PM HISTORY: fall, right upper arm and wrist pain COMPARISON: None FINDINGS: Visualized bony structures are intact and anatomically aligned without fracture or other acute osseous abnormality evident. Mild spurring at AC joint and some heterogeneity in the humeral head which can be secondary evidence of cuff pathology. IMPRESSION: No acute bony injury. Degenerative changes in the shoulder. Report Dictated By: Jamie Kim MD at 08/03/2017 8:33 PM EXAMINATION: PA and lateral chest with dedicated right rib views. HISTORY: Fall. Right rib pain. COMPARISON: 04/15/2015. FINDINGS: The lungs are clear. Normal and symmetric lung volumes. No focal consolidation. No pleural effusion or pneumothorax. Normal cardiomediastinal silhouette, with normal heart size and pulmonary vascularity. Right rib views demonstrate a nondisplaced fracture of the lateral right 10th rib. No other discrete rib fracture is visualized. No other acute osseous findings in the chest. IMPRESSION: 1. Nondisplaced fracture of the lateral right 10th rib. 2. No other acute findings in the chest. 3. The lungs are clear. No pneumothorax or pleural effusion. Report Dictated By: Steven Trevino MD at 08/03/2017 9:19 PM ED Course/Re-evaluation ED Course CT scan is unavailable. Labs showed a normal CBC, metabolic panel, and urinalysis showed small blood on dipstick but only one red cell on microscopic with a lot of squamous epithelial cells. I reviewed these findings with the patient. She had an initial elevated blood pressure which came down later. Overall vital signs are stable. I reviewed this with the patient and indicated that the CT scan is unavailable. The humerus x-ray and wrist x-ray were negative. We did do a rib series which showed a lateral right nondisplaced rib fracture. She is very concerned that there is something more going on. I indicated that if she felt like she needed to have a CT scan today she could always travel to [facility] and be seen in the ER there however given the fact that labs and vital signs are stable, I did not think that this needed to be done emergently, but if she felt otherwise she could certainly go do this. She indicated that she could not do this because she has a flat tire. She asked a lot of questions about injury to liver, kidney, abdominal area, and ribs and I answered these to the best that I could. I did provide some Toradol and Robaxin to help with pain. Also send her home with some hydrocodone to use for pain for the rib fracture. She had a lot of other questions about multiple other subjects that I tried to answer the best I could. She did ask for a couple of prescriptions for a couple of nutritional supplements that she is used in the past and I did provide these prescriptions for her as well. Decision to Disposition Date: Aug 03, 2017 Decision to Disposition Time: 21:52 Depart Departure Latest Vital Signs Vital Signs Date Time Temp Pulse Resp B/P (MAP) Pulse Ox O2 Delivery O2 Flow Rate FiO2 08/03/17 22:24 150/100 (117) 08/03/17 21:35 72 93 08/03/17 19:08 98.0 18 Room Air Impression: Primary Impression: Right rib fracture Additional Impressions: Contusion of wrist, right Contusion of right arm Condition: Improved Disposition: HOME OR SELF-CARE New Scripts Moxifloxacin Hcl (AVELOX) 400 Mg Tab 400 MG PO QDAY for 10 Days, #10 TAB 0 Refills Prov: IVA CHAPA MD 08/03/17 Methocarbamol (ROBAXIN-750) 750 Mg Tablet 750 MG PO TID Y for MUSCLE SPASMS, #30 TAB 0 Refills Prov: IVA CHAPA MD 08/03/17 Hydrocodone Bit/Acetaminophen (HYDROCODON-ACETAMINOPHEN 5-325) 1 Each Tablet 1 EACH PO Q4H Y for PAIN, #12 TAB 0 Refills Prov: IVA CHAPA MD 08/03/17 Patient Instructions: Contusion in Adults (ED), Rib Fracture (GEN) Problem Qualifiers Primary Impression: Right rib fracture Encounter type: initial encounter Rib fracture type: single rib Fracture type: closed Qualified Codes: S22.31XA - Fracture of one rib, right side, initial encounter for closed fracture Additional Impressions: Contusion of wrist, right Encounter type: initial encounter Qualified Codes: S60.211A - Contusion of right wrist, initial encounter Contusion of right arm Encounter type: initial encounter Qualified Codes: S40.021A - Contusion of right upper arm, initial encounter IVA CHAPA MD Aug 03, 2017 19:14
[2017-08-03] MEDS ORDERED: METHOCARBAMOL 500 MG TAB PO ONE ×2 (19:45→21:50)
[2017-08-03] MEDS ORDERED: KETOROLAC TROM 10MG TAB PO ONE (19:45)
[2017-08-03 20:03] LABS: PLATELET COUNT, AUTOMATED 256 K/uL (150-450)
--- NOTE | 2017-08-03 20:40 | RADIOLOGY IMAGING REPORT ---
FACILITY: [facility] PATIENT NAME: Charo Block : 1960 MR: [id number] V: [id number] EXAM DATE: ORDERING PHYSICIAN: IVA CHAPA TECHNOLOGIST: Location: [facility] Patient: Charo Block : 1960 Visit/Account:[id number] Date of Sevice: 08/03/2017 EXAMINATION: Right humerus, 2 views 08/03/2017 7:37 PM HISTORY: fall, right upper arm and wrist pain COMPARISON: None FINDINGS: Visualized bony structures are intact and anatomically aligned without fracture or other a cute osseous abnormality evident. Mild spurring at AC joint and some heterogeneity in the humeral hea d which can be secondary evidence of cuff pathology. IMPRESSION: No acute bony injury. Degenerative changes in the shoulder. Report Dictated By: Jamie Kim MD at 08/03/2017 8:33 PM Report E-Signed By: Jamie Kim MD at 08/03/2017 8:34 PM WSN:[id number]
--- NOTE | 2017-08-03 20:42 | RADIOLOGY IMAGING REPORT ---
[facility] PATIENT NAME: Charo Block : 1960 MR: [id number] V: [id number] EXAM DATE: ORDERING PHYSICIAN: IVA CHAPA TECHNOLOGIST: Location: [facility] [place] Patient: Charo Block : 1960 Visit/Account:[id number] Date of Sevice: 08/03/2017 EXAMINATION: Right wrist, 3 views 08/03/2017 7:37 PM HISTORY: fall, right upper arm and wrist pain COMPARISON: 01/18/2015. Right hand 03/17/2015 FINDINGS: Visualized bony structures are intact and anatomically aligned without fracture or other a cute osseous abnormality evident. Minimal spurring along the first CMC. IMPRESSION: No acute bony injury. Report Dictated By: Jamie Kim MD at 08/03/2017 8:35 PM Report E-Signed By: Jamie Kim MD at 08/03/2017 8:36 PM WSN:[id number]
--- NOTE | 2017-08-03 21:30 | RADIOLOGY IMAGING REPORT ---
FACILITY: PATIENT NAME: Charo Block : 1960 MR: [id number] V: [id number] EXAM DATE: ORDERING PHYSICIAN: IVA CHAPA TECHNOLOGIST: Location: [facility] Patient: Charo Block : 1960 Visit/Account:[id number] Date of Sevice: 08/03/2017 EXAMINATION: PA and lateral chest with dedicated right rib views. HISTORY: Fall. Right rib pain. COMPARISON: 04/15/2015. FINDINGS: The lungs are clear. Normal and symmetric lung volumes. No focal consolidation. No pleural effusion o r pneumothorax. Normal cardiomediastinal silhouette, with normal heart size and pulmonary vascularity. Right rib views demonstrate a nondisplaced fracture of the lateral right 10th rib. No other discrete rib fracture is visualized. No other acute osseous findings in the chest. IMPRESSION: 1. Nondisplaced fracture of the lateral right 10th rib. 2. No other acute findings in the chest. 3. The lungs are clear. No pneumothorax or pleural effusion. Report Dictated By: Steven Trevino MD at 08/03/2017 9:19 PM Report E-Signed By: Steven Trevino MD at 08/03/2017 9:25 PM WSN:[id number]
--- NOTE | 2017-08-03 21:31 | RADIOLOGY IMAGING REPORT ---
FACILITY: [facility] PATIENT NAME: Charo Block : 1960 MR: [id number] V: [id number] EXAM DATE: ORDERING PHYSICIAN: IVA CHAPA TECHNOLOGIST: Location: [facility] Patient: Charo Block : 1960 Visit/Account:[id number] Date of Sevice: 08/03/2017 EXAMINATION: PA and lateral chest with dedicated right rib views. HISTORY: Fall. Right rib pain. COMPARISON: 04/15/2015. FINDINGS: The lungs are clear. Normal and symmetric lung volumes. No focal consolidation. No pleural effusion o r pneumothorax. Normal cardiomediastinal silhouette, with normal heart size and pulmonary vascularity. Right rib views demonstrate a nondisplaced fracture of the lateral right 10th rib. No other discrete rib fracture is visualized. No other acute osseous findings in the chest. IMPRESSION: 1. Nondisplaced fracture of the lateral right 10th rib. 2. No other acute findings in the chest. 3. The lungs are clear. No pneumothorax or pleural effusion. Report Dictated By: Steven Trevino MD at 08/03/2017 9:19 PM Report E-Signed By: Steven Trevino MD at 08/03/2017 9:25 PM WSN:[id number]
[2017-08-03] MEDS ORDERED: KETOROLAC TROM 10 MG TAB TH PO ONE (21:50)
[2017-08-03] MEDS ORDERED: LIDOCAINE 1% MDV 200 MG/20 ML INJ ONE (21:50)
[2017-08-03] MEDS ORDERED: cefTRIAXone 1 GM VIAL IM ONE (21:50)
[2017-08-03] MEDS ORDERED: ACET/HYDROC 5/325MG TH ER ONLY 2 TAB/BOTTLE PO ONE (21:50)
[2017-08-03] MEDS ORDERED: MOXIFLOXACIN 400 MG TAB PO ONE (21:50)
[2017-08-03] MEDS ORDERED: METH-543 PO (21:56)
[2017-08-03] MEDS ORDERED: LOR5/325 PO (21:56)
[2017-08-03] MEDS ORDERED: MOX400 PO (21:56)
[2017-08-03 22:24] VITALS: BP 150/100
== END 2017-08-03 22:25 | disposition home or self-care (01) ==
LOC: ER 19:08
DX: S22.31XA Fracture of one rib, right side, initial encounter for closed fracture (principal); S60.211A Contusion of right wrist, initial encounter; S40.021A Contusion of right upper arm, initial encounter
CPT/HCPCS: 36415; 71046; 71100; 73060; 73110; 81001; 85025; 96372; 99284; J0696; J2001; J2280; 82040; 82247; 82310; 82374; 82435; 82565; 82947; 84075; 84132; 84155; 84295; 84450; 84460; 84520

== ENCOUNTER → 2017-08-07 | Emergency (ER) | payer MEDICAID ==
[~2017-08-07] MED LIST changes: +CRAN1TAB10 PO; +LISI-362 PO; +PHEN100T27 PO; +PRAZ1CAP25 PO
== END ==
LOC: ER 20:51
DX: Z02.9 Encounter for administrative examinations, unspecified (principal)

== ENCOUNTER 2017-08-08 15:34 | Emergency (ER) | payer MEDICAID ==
[~2017-08-08 15:34] MED LIST changes: -CRAN1TAB10 PO; -LISI-362 PO; -PHEN100T27 PO; -PRAZ1CAP25 PO
--- NOTE | 2017-08-08 16:53 | RADIOLOGY IMAGING REPORT ---
FACILITY: [facility] PATIENT NAME: Charo Block : 1960 MR: [id number] V: [id number] EXAM DATE: ORDERING PHYSICIAN: ROBLES CURRAN TECHNOLOGIST: Location: [facility] [place] Patient: Charo Block : 1960 Visit/Account:[id number] Date of Sevice: 08/08/2017 HEAD W/O CONTRAST EXAMINATION: CT head/brain without contrast HISTORY: Dizziness TECHNIQUE: Contiguous axial images were obtained from the skull base to the vertex without intravenou s contrast. One of the following dose optimization techniques was utilized in the performance of this exam: Autom ated exposure control; adjustment of the mA and/or kV according to the patient's size; or use of an i terative reconstruction technique. Specific details can be referenced in the facility's radiology C T exam operational policy. COMPARISON STUDIES: None FINDINGS: Ventricles/sulci/fissures: Negative Masses/hemorrhage/midline shift: Negative White matter: Negative Diaz-white differentiation: Negative Extra-axial spaces: Negative Dural venous sinuses/arterial structures: Negative Skull base/calvarium: Negative Visualized mastoid air cells/paranasal sinuses: Negative IMPRESSION: Normal CT scan of the head and Report Dictated By: Corby Evans MD at 08/08/2017 4:45 PM Report E-Signed By: Corby Evans MD at 08/08/2017 4:48 PM WSN:[id number]
--- NOTE | 2017-08-08 17:05 | RADIOLOGY IMAGING REPORT ---
FACILITY: [facility] [place] PATIENT NAME: Charo Block : 1960 MR: [id number] V: [id number] EXAM DATE: ORDERING PHYSICIAN: ROBLES CURRAN TECHNOLOGIST: Location: [facility] [place] Patient: hCaro Block : 1960 Visit/Account:[id number] Date of Sevice: 08/08/2017 ABDOMEN/PELVIS W/O CONTRAST HISTORY: PAIN TECHNIQUE: Axial images acquired through the abdomen/pelvis. Coronal and sagittal reformatting also performed. No IV contrast administered. Dose Lowering Technique One of the following dose optimization techniques was utilized in the performance of this exam: Autom ated exposure control; adjustment of the mA and/or kV according to the patient's size; or use of an i terative reconstruction technique. Specific details can be referenced in the facility's radiology C T exam operational policy. COMPARISON: March 27, 2017 FINDINGS: Visualized lung bases: Negative. Hepatobiliary: There is a vague 1.9 cm hypoattenuating lesion along the lateral aspect of the dome o f the liver which is faintly seen on the prior study appears relatively unchanged Spleen: Negative. Adrenals: Negative. Pancreas: Negative. Kidneys ureters and bladder: Negative. Genitalia: Negative. GI: There are scattered diverticula seen in the colon although no CT evidence of acute diverticuliti s. The appendix is visualized and does not appear inflamed. Vessels/spaces/nodes: Very mild atherosclerotic calcifications in the abdominal aorta Bones/soft tissues: Postoperative changes of the lower lumbar spine Additional findings: None pertinent. IMPRESSION: Scattered diverticula in the colon although no CT evidence of acute diverticulitis The appendix is visualized and does not appear inflamed Stable hypoattenuating lesion along the lateral aspect dome of the liver Postoperative changes lower lumbar spine Report Dictated By: Rina Scott MD at 08/08/2017 4:53 PM Report E-Signed By: Rina Scott MD at 08/08/2017 5:02 PM WSN:[email or web address]
[2017-08-08 19:17] LABS: PLATELET COUNT, AUTOMATED 250 K/uL (150-450)
[2017-08-08] MEDS ORDERED: KETOROLAC 60 MG/2 ML VIAL IM ONE (20:20)
[2017-08-08] MEDS ORDERED: METHOCARBAMOL 500 MG TAB PO ONE ×2 (20:20→20:55)
--- NOTE | 2017-08-08 20:33 | RADIOLOGY IMAGING REPORT ---
FACILITY: [facility] [place] PATIENT NAME: Charo Block : 1960 MR: [id number] V: [id number] EXAM DATE: ORDERING PHYSICIAN: ROBLES CURRAN TECHNOLOGIST: Location: [facility] [place] Patient: Charo Block : 1960 Visit/Account:[id number] Date of Sevice: 08/08/2017 LUMBAR SPINE 2 OR 3 VIEW HISTORY: PAIN AP lateral and coned-down sacral views of lumbar spine. FINDINGS: Status post pedicle fusion changes at the L5-S1 level. No fracture or loosening or malalignment of th e pedicle screws. Anterior fusion screws and plate seen at the L5-S1 level with associated prosthetic disc centered within the central and anterior aspect of the disc space. No fracture or loosening of the anterior orthopedic hardware. AP film demonstrates a slight scoliotic curvature of the lumbar spi ne maximally convex to the right at the L3 level. Moderate disc space narrowing at the L2-3 level associated with anterior spurring and endplate sclero sis. Similar lesser changes seen at the L3-4 and L4-5 levels. Sacrum some unremarkable. IMPRESSION: Postoperative changes as described. Mild lumbar DJD changes. Report Dictated By: Corby Evans MD at 08/08/2017 8:27 PM Report E-Signed By: Corby Evans MD at 08/08/2017 8:29 PM WSN:[id number]
--- NOTE | 2017-08-08 20:34 | RADIOLOGY IMAGING REPORT ---
FACILITY: [facility] - [place] PATIENT NAME: Charo Block : 1960 MR: [id number] V: [id number] EXAM DATE: ORDERING PHYSICIAN: ROBLES CURRAN TECHNOLOGIST: Location: [facility] - [place] Patient: Charo Block : 1960 Visit/Account:[id number] Date of Sevice: 08/08/2017 FOOT 2 VIEW RIGHT HISTORY: foot pain, crush injury Two-view examination the right foot. FINDINGS: No acute osseous pathology. Joint spaces demonstrates mild joint space narrowing and marginal osteoph yte change involving the first metatarsal-phalangeal joint. Remainder the joint spaces well-maintaine d. Soft tissues unremarkable. Small plantar spurring change. IMPRESSION: 1. Negative right foot for acute bony pathology. Report Dictated By: Corby Evans MD at 08/08/2017 8:29 PM Report E-Signed By: Corby Evans MD at 08/08/2017 8:31 PM WSN:[id number]
--- NOTE | 2017-08-08 20:35 | RADIOLOGY IMAGING REPORT ---
[place] [facility] [place] Charo Block : 1960 MR: [id number] V: [id number] EXAM DATE: ORDERING PHYSICIAN: ROBLES CURRAN TECHNOLOGIST: Location: [facility] - [place], [place] Patient: Charo Block : 1960 Visit/Account:[id number] Date of Sevice: 08/08/2017 FOOT 2 VIEW LEFT HISTORY: foot pain, crush injury Two-view examination of the left foot. FINDINGS: No acute bony pathology. Minimal marginal osteophyte along the medial aspect of the first metatarsal- phalangeal joint. Remainder the joint spaces well-maintained. Soft tissues are unremarkable. Small pl jase spurring change noted. IMPRESSION: 1. Negative left foot for acute bony pathology Report Dictated By: Corby Evans MD at 08/08/2017 8:31 PM Report E-Signed By: Corby Evans MD at 08/08/2017 8:32 PM WSN:[id number]
--- NOTE | 2017-08-08 20:52 | ER Report ---
History and Physical Time Seen By MD: 16:55 Hx. of Stated Complaint: PT REPORTS SHE IS HERE FOR HER CTS SHE COULDN'T GET 5 DAYS AGO. PT REPORTS HEADACHE AND R SIDE PAIN, WORRIED ABOUT A SCREW IN HER LOWER BACK HPI/ROS CHIEF COMPLAINT: Headache, back and rib pain HISTORY OF PRESENT ILLNESS: 56-year-old female patient presents to emergency room with complaint of headache, back and rib pain. Patient states she's been having pain for the past several days. She states that she was seen in the emergency room several days ago and was diagnosed with concussion. She states that they were unable to do a CAT scan at that time. She states she would like to have a CAT scan done. Patient states she also has pain to the abdomen. She would like to have that CAT scan. Patient states that the pain has been "unbearable. Patient states she is having a hard time standing up straight. She states the pain is improved with ambulation. She denies any loss of bowel or bladder control. Patient states she's been taking the medication which was prescribed. Patient has had worsening of her pain today. Patient has been seen in the emergency room 3 times in the past several days. REVIEW OF SYSTEMS: Respiratory: No cough, no dyspnea. Cardiovascular: No chest pain, no palpitations. Gastrointestinal: As noted above Musculoskeletal: As noted above Allergies: Coded Allergies: Soy (Verified Allergy, Severe, INTESTINAL BLEEDING, KIDNEY SWELLING, ) Sulfa (Sulfonamide Antibiotics) (Verified Allergy, Severe, SWELLING LIPS, RASH, 04/30/16) iodine (Verified Allergy, Severe, SWELLS THROAT, 04/30/16) ciprofloxacin (Unverified Allergy, Intermediate, UNKNOWN, 04/30/16) alcohol (Verified Allergy, Mild, TIGHTNESS IN THROAT, 04/30/16) oxycodone (Unverified Allergy, Mild, 04/30/16) prochlorperazine (Verified Allergy, Mild, DIZZY, 04/30/16) promethazine (Verified Allergy, Mild, 04/30/16) Gadolinium-Containing Contrast Medi (Verified Allergy, Unknown, 04/30/16) misoprostol (Verified Allergy, Unknown, 04/30/16) red dye (Verified Allergy, Unknown, 08/08/17) Uncoded Allergies: EGGS (Allergy, Mild, SWELLING, 12/07/06) LETTUCE (Allergy, Mild, SWELLS LIVER, 12/07/06) PEANUTS (Allergy, Mild, ABD CRAMPS, 12/07/06) CADAVER PRODUCTS (Adverse Reaction, Intermediate, 01/18/15) Home Meds Active Scripts Lisinopril (LISINOPRIL) 10 Mg Tablet, 10 MG PO QDAY, #30 TAB Prov:ROBLES CURRAN [facility] 08/08/17 Fluconazole (DIFLUCAN) 150 Mg Tablet, 150 MG PO QDAY, #2 TAB Take one tab today and may repeat in 48 hours if there is no improvement. Prov:ROBLES CURRAN [facility] 08/08/17 Cranberry Conc/C/Bacill Coag (AZO CRANBERRY TABLET) 1 Each Tablet, 1 EACH PO BID , #15 TAB Prov:ROBLES CURRAN [facility] 08/08/17 Phenazopyridine Hcl (PHENAZOPYRIDINE HCL) 100 Mg Tablet, 100 MG PO TID, #15 TAB Prov:ROBLES CURRAN [facility] 08/08/17 Ketorolac Tromethamine (KETOROLAC TROMETHAMINE) 10 Mg Tab, 10 MG PO Q6H, #20 TAB Prov:ROBLES CURRANP 08/08/17 Moxifloxacin Hcl (AVELOX) 400 Mg Tab, 400 MG PO QDAY for 10 Days, #10 TAB 0 Refills Prov:IVA CHAPA MD 08/03/17 Methocarbamol (ROBAXIN-750) 750 Mg Tablet, 750 MG PO TID Y for MUSCLE SPASMS, # 30 TAB 0 Refills Prov:IVA CHAPA MD 08/03/17 Hydrocodone Bit/Acetaminophen (HYDROCODON-ACETAMINOPHEN 5-325) 1 Each Tablet, 1 EACH PO Q4H Y for PAIN, #12 TAB 0 Refills Prov:IVA CHAPA MD 08/03/17 Scopolamine (TRANSDERM-SCOP) 1.5 Mg Patch, 1.5 MG TD ONCE, #3 PATCH Prov:EVERT RANDALL MD 03/27/17 Polymyxin B Sulf/Trimethoprim (POLYTRIM EYE DROPS) 10 Ml Drops, 10 ML OP TID for 5 Days, #1 BOTTLE Prov:EVERT RANDALL MD 03/27/17 Ketorolac Tromethamine (KETOROLAC TROMETHAMINE) 10 Mg Tab, 10 MG PO Q6H Y for PAIN, #12 TAB 0 Refills Prov:IVA CHAPA MD 03/27/17 Methocarbamol (ROBAXIN-750) 750 Mg Tablet, 750 MG PO TID Y for MUSCLE SPASMS, # 30 TAB 0 Refills Prov:IVA CHAPA MD 03/27/17 Cefpodoxime Proxetil (CEFPODOXIME PROXETIL) 200 Mg Tablet, 200 MG PO BID, #20 TAB 0 Refills Prov:IVA CHAPA MD 03/27/17 Fluconazole (DIFLUCAN) 150 Mg Tablet, 150 MG PO QDAY, #1 TAB 0 Refills Prov:IVA CHAPA MD 03/27/17 Reported Medications Cholecalciferol (Vitamin D3) (VITAMIN D3) 1,000 Unit Tablet, 1000 UNIT PO, TAB 03/27/17 Guaifenesin (MUCINEX) 600 Mg Tablet.er, 600 MG PO 03/27/17 Past Medical/Surgical History Patient has past medical history of migraines, mitral valve prolapse, hypertension, hyperlipidemia, bronchiectasis, Brown liver disease, either Danlos , fractures, hypothyroidism, dry skin, depression. Patient has surgical history of abdominal surgery to remove scar tissue, dental surgery. Patient denies a pertinent family medical history. Reviewed Nurses Notes: Yes Hx Smoking: No Smoking Status: Former Smoker Exposure to Second Hand Smoke?: No Hx Substance Use Disorder: No Hx Alcohol Use: No Constitutional Vital Sign - Last 24 Hours 08/08/17 08/08/17 15:34 21:47 Temp 98.0 Pulse 73 71 Resp 16 16 B/P (MAP) 163/111 158/112 (127) Pulse Ox 94 96 O2 Delivery Room Air Physical Exam General Appearance: The patient is alert, has no immediate need for airway protection and no current signs of toxicity. Eyes: Pupils equal and round no injection. ENT: Tympanic membranes are pearly-diaz, auditory canals are patent, mucus mucous membranes are moist. Respiratory: Chest is non tender, lungs are clear to auscultation. Cardiac: regular rate and rhythm Gastrointestinal: Abdomen is soft and non tender, no masses, bowel sounds normal. Musculoskeletal: Neck: Neck is supple and non tender. Extremities have full range of motion and are non tender. Patient has tenderness to the bilateral feet, ribs and lumbar spine. Skin: No rashes or lesions. DIFFERENTIAL DIAGNOSIS: After history and physical exam differential diagnosis was considered for contusion, fracture, concussion, intracranial hemorrhage Medical Decision Making Data Points Result Diagram: 08/08/17190708/08/171907 Laboratory Hematology Test 08/08/17 19:08 08/08/17 20:52 Red Blood Count 4.91 M/uL (4.17-5.56) Mean Corpuscular Volume 87.4 fL (80.0-96.0) Mean Corpuscular Hemoglobin 30.0 pg (26.0-33.0) Mean Corpuscular Hemoglobin Concent 34.4 g/dL (32.0-36.0) Red Cell Distribution Width 13.3 % (11.5-14.5) Mean Platelet Volume 8.6 fL (7.2-11.1) Neutrophils (%) (Auto) 59.9 % (39.4-72.5) Lymphocytes (%) (Auto) 30.5 % (17.6-49.6) Monocytes (%) (Auto) 6.1 % (4.1-12.4) Eosinophils (%) (Auto) 2.4 % (0.4-6.7) Basophils (%) (Auto) 1.1 % (0.3-1.4) Nucleated RBC Relative Count (auto) 0.0 /100WBC Neutrophils # (Auto) 3.4 K/uL (2.0-7.4) Lymphocytes # (Auto) 1.7 K/uL (1.3-3.6) Monocytes # (Auto) 0.3 K/uL (0.3-1.0) Eosinophils # (Auto) 0.1 K/uL (0.0-0.5) Basophils # (Auto) 0.1 K/uL (0.0-0.1) Nucleated RBC Absolute Count (auto) 0.00 K/uL Sodium Level 141 mmol/L (137-145) Potassium Level 3.9 mmol/L (3.5-5.0) Chloride Level 104 mmol/L (98-107) Carbon Dioxide Level 24 mmol/L (22-31) Blood Urea Nitrogen 27 mg/dl (7-18) Creatinine 0.80 mg/dl (0.52-1.04) Glomerular Filtration Rate Calc > 60.0 Random Glucose 86 mg/dl (75-110) Calcium Level 9.1 mg/dl (8.4-10.2) Total Bilirubin 0.4 mg/dl (0.2-1.3) Aspartate Amino Transf (AST/SGOT) 23 U/L (0-35) Alanine Aminotransferase (ALT/SGPT) 35 U/L (0-56) Alkaline Phosphatase 62 U/L (0-126) Total Protein 7.3 g/dl (6.3-8.2) Albumin 4.3 g/dl (3.5-5.0) Urine Color Yellow Urine Clarity Slightly-cloudy Urine pH 5.0 pH (4.8-9.5) Urine Specific [place] 1.017 Urine Protein Negative mg/dL (NEGATIVE) Urine Glucose (UA) Negative mg/dL (NEGATIVE) Urine Ketones Negative mg/dL (NEGATIVE) Urine Blood Negative (NEGATIVE) Urine Nitrite Negative (NEGATIVE) Urine Bilirubin Negative (NEGATIVE) Urine Urobilinogen Negative mg/dL (0.2-1.9) Urine Leukocyte Esterase Negative (NEGATIVE) Urine RBC 6 /HPF (0-2/HPF) Urine WBC 1 /HPF (0-5/HPF) Urine Squamous Epithelial Cells Moderate /LPF (</=FEW) Urine Bacteria Negative /HPF (NONE-FEW) Urine Mucus None /HPF (NONE-FEW) Chemistry Test 08/08/17 19:08 08/08/17 20:52 White Blood Count 5.7 k/uL (4.5-11.0) Red Blood Count 4.91 M/uL (4.17-5.56) Hemoglobin 14.7 g/dL (12.0-16.0) Hematocrit 42.9 % (34.0-47.0) Mean Corpuscular Volume 87.4 fL (80.0-96.0) Mean Corpuscular Hemoglobin 30.0 pg (26.0-33.0) Mean Corpuscular Hemoglobin Concent 34.4 g/dL (32.0-36.0) Red Cell Distribution Width 13.3 % (11.5-14.5) Platelet Count 250 K/uL (150-450) Mean Platelet Volume 8.6 fL (7.2-11.1) Neutrophils (%) (Auto) 59.9 % (39.4-72.5) Lymphocytes (%) (Auto) 30.5 % (17.6-49.6) Monocytes (%) (Auto) 6.1 % (4.1-12.4) Eosinophils (%) (Auto) 2.4 % (0.4-6.7) Basophils (%) (Auto) 1.1 % (0.3-1.4) Nucleated RBC Relative Count (auto) 0.0 /100WBC Neutrophils # (Auto) 3.4 K/uL (2.0-7.4) Lymphocytes # (Auto) 1.7 K/uL (1.3-3.6) Monocytes # (Auto) 0.3 K/uL (0.3-1.0) Eosinophils # (Auto) 0.1 K/uL (0.0-0.5) Basophils # (Auto) 0.1 K/uL (0.0-0.1) Nucleated RBC Absolute Count (auto) 0.00 K/uL Glomerular Filtration Rate Calc > 60.0 Calcium Level 9.1 mg/dl (8.4-10.2) Total Bilirubin 0.4 mg/dl (0.2-1.3) Aspartate Amino Transf (AST/SGOT) 23 U/L (0-35) Alanine Aminotransferase (ALT/SGPT) 35 U/L (0-56) Alkaline Phosphatase 62 U/L (0-126) Total Protein 7.3 g/dl (6.3-8.2) Albumin 4.3 g/dl (3.5-5.0) Urine Color Yellow Urine Clarity Slightly-cloudy Urine pH 5.0 pH (4.8-9.5) Urine Specific Lind[place] 1.017 Urine Protein Negative mg/dL (NEGATIVE) Urine Glucose (UA) Negative mg/dL (NEGATIVE) Urine Ketones Negative mg/dL (NEGATIVE) Urine Blood Negative (NEGATIVE) Urine Nitrite Negative (NEGATIVE) Urine Bilirubin Negative (NEGATIVE) Urine Urobilinogen Negative mg/dL (0.2-1.9) Urine Leukocyte Esterase Negative (NEGATIVE) Urine RBC 6 /HPF (0-2/HPF) Urine WBC 1 /HPF (0-5/HPF) Urine Squamous Epithelial Cells Moderate /LPF (</=FEW) Urine Bacteria Negative /HPF (NONE-FEW) Urine Mucus None /HPF (NONE-FEW) Urinalysis Test 08/08/17 20:52 Urine Color Yellow Urine Clarity Slightly-cloudy Urine pH 5.0 pH (4.8-9.5) Urine Specific [place] 1.017 Urine Protein Negative mg/dL (NEGATIVE) Urine Glucose (UA) Negative mg/dL (NEGATIVE) Urine Ketones Negative mg/dL (NEGATIVE) Urine Blood Negative (NEGATIVE) Urine Nitrite Negative (NEGATIVE) Urine Bilirubin Negative (NEGATIVE) Urine Urobilinogen Negative mg/dL (0.2-1.9) Urine Leukocyte Esterase Negative (NEGATIVE) Urine RBC 6 /HPF (0-2/HPF) Urine WBC 1 /HPF (0-5/HPF) Urine Squamous Epithelial Cells Moderate /LPF (</=FEW) Urine Bacteria Negative /HPF (NONE-FEW) Urine Mucus None /HPF (NONE-FEW) EKG/Imaging Imaging FOOT 2 VIEW RIGHT HISTORY: foot pain, crush injury Two-view examination the right foot. FINDINGS: No acute osseous pathology. Joint spaces demonstrates mild joint space narrowing and marginal osteophyte change involving the first metatarsal- phalangeal joint. Remainder the joint spaces well-maintained. Soft tissues unremarkable. Small plantar spurring change. IMPRESSION: 1. Negative right foot for acute bony pathology. Report Dictated By: Corby Evans MD at 08/08/2017 8:29 PM Report E-Signed By: Corby Evans MD at 08/08/2017 8:31 PM FOOT 2 VIEW LEFT HISTORY: foot pain, crush injury Two-view examination of the left foot. FINDINGS: No acute bony pathology. Minimal marginal osteophyte along the medial aspect of the first metatarsal-phalangeal joint. Remainder the joint spaces well- maintained. Soft tissues are unremarkable. Small plantar spurring change noted. IMPRESSION: 1. Negative left foot for acute bony pathology Report Dictated By: Corby Evans MD at 08/08/2017 8:31 PM Report E-Signed By: Corby Evans MD at 08/08/2017 8:32 PM LUMBAR SPINE 2 OR 3 VIEW HISTORY: PAIN AP lateral and coned-down sacral views of lumbar spine. FINDINGS: Status post pedicle fusion changes at the L5-S1 level. No fracture or loosening or malalignment of the pedicle screws. Anterior fusion screws and plate seen at the L5-S1 level with associated prosthetic disc centered within the central and anterior aspect of the disc space. No fracture or loosening of the anterior orthopedic hardware. AP film demonstrates a slight scoliotic curvature of the lumbar spine maximally convex to the right at the L3 level. Moderate disc space narrowing at the L2-3 level associated with anterior spurring and endplate sclerosis. Similar lesser changes seen at the L3-4 and L4- 5 levels. Sacrum some unremarkable. IMPRESSION: Postoperative changes as described. Mild lumbar DJD changes. Report Dictated By: Corby Evans MD at 08/08/2017 8:27 PM Report E-Signed By: Corby Evans MD at 08/08/2017 8:29 PM ABDOMEN/PELVIS W/O CONTRAST HISTORY: PAIN TECHNIQUE: Axial images acquired through the abdomen/pelvis. Coronal and sagittal reformatting also performed. No IV contrast administered. Dose Lowering Technique One of the following dose optimization techniques was utilized in the performance of this exam: Automated exposure control; adjustment of the mA and/ or kV according to the patient's size; or use of an iterative reconstruction technique. Specific details can be referenced in the facility's radiology CT exam operational policy. COMPARISON: March 27, 2017 FINDINGS: Visualized lung bases: Negative. Hepatobiliary: There is a vague 1.9 cm hypoattenuating lesion along the lateral aspect of the dome of the liver which is faintly seen on the prior study appears relatively unchanged Spleen: Negative. Adrenals: Negative. Pancreas: Negative. Kidneys ureters and bladder: Negative. Genitalia: Negative. GI: There are scattered diverticula seen in the colon although no CT evidence of acute diverticulitis. The appendix is visualized and does not appear inflamed. Vessels/spaces/nodes: Very mild atherosclerotic calcifications in the abdominal aorta Bones/soft tissues: Postoperative changes of the lower lumbar spine Additional findings: None pertinent. IMPRESSION: Scattered diverticula in the colon although no CT evidence of acute diverticulitis The appendix is visualized and does not appear inflamed Stable hypoattenuating lesion along the lateral aspect dome of the liver Postoperative changes lower lumbar spine Report Dictated By: Rina Scott MD at 08/08/2017 4:53 PM Report E-Signed By: Rina Scott MD at 08/08/2017 5:02 PM HEAD W/O CONTRAST EXAMINATION: CT head/brain without contrast HISTORY: Dizziness TECHNIQUE: Contiguous axial images were obtained from the skull base to the vertex without intravenous contrast. One of the following dose optimization techniques was utilized in the performance of this exam: Automated exposure control; adjustment of the mA and/ or kV according to the patient's size; or use of an iterative reconstruction technique. Specific details can be referenced in the facility's radiology CT exam operational policy. COMPARISON STUDIES: None FINDINGS: Ventricles/sulci/fissures: Negative Masses/hemorrhage/midline shift: Negative White matter: Negative Diaz-white differentiation: Negative Extra-axial spaces: Negative Dural venous sinuses/arterial structures: Negative Skull base/calvarium: Negative Visualized mastoid air cells/paranasal sinuses: Negative IMPRESSION: Normal CT scan of the head and Report Dictated By: Corby Evans MD at 08/08/2017 4:45 PM Report E-Signed By: Corby Evans MD at 08/08/2017 4:48 PM ED Course/Re-evaluation ED Course Patient was medicated exam room, history and physical were obtained. Differential diagnoses were considered. I examination patient has no bruising, mild tenderness to palpation. A CT scan of the head, abdomen and pelvis, x-rays of the bilateral feet and lumbar spine were done. A CBC and CMP were done which was unremarkable. Patient did have a slightly elevated BUN, which could be secondary to dehydration. We'll go ahead and have her increase fluid intake. She is to limit her NSAIDs. She is to follow-up with her primary care provider next week. I discussed this with patient who verbalized understanding and agreement with plan. 08/08/2017 9:57:10 pm patient continues to emergency room, she requested that we check her urine for blood. Urinalysis was sent, it was negative for blood, did have 6 red blood cells per high-power field in the urine. Patient then became concerned about her blood pressure, which was unchanged from when she was initially brought in. When I went to discuss this with her patient is Stating that she needed pain medication to help with her blood pressure. She states that was only thing that would help with her blood pressure. When I told her that we would not give her any pain medication, however I did offer to treat her hypertension with lisinopril. Patient stated that that was inconceivable the patient would not do that due to that being an effective. She is requesting something more for pain. I again reasserted that we would not be treating her with any pain medication. At that time she became angry. I told her that I done everything that was going to do and excuse myself. She then left the emergency room. Decision to Disposition Date: Aug 08, 2017 Decision to Disposition Time: 20:49 Depart Departure Latest Vital Signs Vital Signs Date Time Temp Pulse Resp B/P (MAP) Pulse Ox O2 Delivery O2 Flow Rate FiO2 08/08/17 21:47 71 16 158/112 (127) 96 08/08/17 15:34 98.0 Room Air Impression: Primary Impression: Abdominal pain Additional Impressions: Contusion of right foot Contusion of left foot Hypertension Condition: Improved Disposition: HOME OR SELF-CARE New Scripts Prazosin Hcl (MINIPRESS) 1 Mg Capsule 1 MG PO BID, #60 CAPSULE Prov: ROBLES CURRAN JOSELINE 08/08/17 Fluconazole (DIFLUCAN) 150 Mg Tablet 150 MG PO QDAY, #2 TAB Take one tab today and may repeat in 48 hours if there is no improvement. Prov: JUAN CURRANSelina MCCLENDONP 08/08/17 Cranberry Conc/C/Bacill Coag (AZO CRANBERRY TABLET) 1 Each Tablet 1 EACH PO BID, #15 TAB Prov: MAGDYROBLESJEN MCCLENDONP 08/08/17 Phenazopyridine Hcl (PHENAZOPYRIDINE HCL) 100 Mg Tablet 100 MG PO TID, #15 TAB Prov: JUAN CURRANSelina MCCLENDONP 08/08/17 Ketorolac Tromethamine (KETOROLAC TROMETHAMINE) 10 Mg Tab 10 MG PO Q6H, #20 TAB Prov: ROBLES CURRAN [employer] 08/08/17 Patient Instructions: Abdominal Pain (ED) Additional Instructions: Increase fluid intake. Get plenty of rest. Follow up with your primary care provider in the next week. Return to the ER if condition worsens. Ice sore areas 2-3 times a day for 10-15 minutes. Take medications as prescribed. Problem Qualifiers Primary Impression: Abdominal pain Abdominal location: generalized Qualified Codes: R10.84 - Generalized abdominal pain Additional Impressions: Contusion of right foot Encounter type: initial encounter Qualified Codes: S90.31XA - Contusion of right foot, initial encounter Contusion of left foot Encounter type: initial encounter Qualified Codes: S90.32XA - Contusion of left foot, initial encounter Hypertension Hypertension type: unspecified Qualified Codes: I10 - Essential (primary) hypertension JUAN CURRANSelina MCCLENDONP Aug 08, 2017 20:52
[2017-08-08] MEDS ORDERED: KET10 PO (20:54)
[2017-08-08] MEDS ORDERED: PHEN100T27 PO (20:54)
[2017-08-08] MEDS ORDERED: CRAN1TAB10 PO (21:05)
[2017-08-08] MEDS ORDERED: FLUC150T40 PO (21:05)
[2017-08-08 21:47] VITALS: BP 158/112
[2017-08-08] MEDS ORDERED: LISI-362 PO (21:48)
[2017-08-08] MEDS ORDERED: LISINOPRIL 10 MG TAB PO ONE (21:50)
[2017-08-08] MEDS ORDERED: PRAZ1CAP25 PO (22:14)
== END 2017-08-08 22:01 | disposition home or self-care (01) ==
LOC: ER 17:42
DX: S90.31XA Contusion of right foot, initial encounter (principal); S90.32XA Contusion of left foot, initial encounter; I10 Essential (primary) hypertension; R10.84 Generalized abdominal pain
CPT/HCPCS: 36415; 70450; 72100; 73620; 74176; 81001; 85025; 96372; 99285; J1885; 82040; 82247; 82310; 82374; 82435; 82565; 82947; 84075; 84132; 84155; 84295; 84450; 84460; 84520

== ENCOUNTER 2018-01-29 21:29 | Emergency (ER) | payer MEDICAID ==
[~2018-01-29 21:29] MED LIST changes: +CRAN1TAB10 PO; -HYDR-4309 PO; +HYDR-653 PO; +LISI-362 PO; -METR-160 PO; +METR500T54 PO; +PHEN100T27 PO; +PRAZ1CAP25 PO
[2018-01-29 21:32] VITALS: BP 172/98
--- NOTE | 2018-01-29 21:33 | ER Report ---
History and Physical Time Seen By MD: 21:32 HPI/ROS CHIEF COMPLAINT: Sinus infection HISTORY OF PRESENT ILLNESS: 57-year-old female presents ambulatory to the ER with a list of complaints. Her 1st complaint is a sinus infection. She's was cleaning and got a lot of dust in her nose which aggravated her chronic sinus symptoms. She reports fever and sinus congestion. Patient's complaining of back pain. She has a chronic back pain. She has a history of a spinal fusion. She states that the spinal fusion, has failed and then every fractures every year and she has worsening pain. She also states that she fell one month ago and injured the inside of her left thigh. The pain is become increasingly worse over the last 4 weeks. She is requesting a CAT scan of her leg to find out what is wrong. REVIEW OF SYSTEMS: Respiratory: No cough, no dyspnea. Cardiovascular: No chest pain, no palpitations. Gastrointestinal: No vomiting, no abdominal pain. Musculoskeletal: As above Allergies: Coded Allergies: Soy (Verified Allergy, Severe, INTESTINAL BLEEDING, KIDNEY SWELLING, 01/29/18) Sulfa (Sulfonamide Antibiotics) (Verified Allergy, Severe, SWELLING LIPS, RASH, 01/29/18) iodine (Verified Allergy, Severe, SWELLS THROAT, 01/29/18) ciprofloxacin (Unverified Allergy, Intermediate, UNKNOWN, 01/29/18) alcohol (Verified Allergy, Mild, TIGHTNESS IN THROAT, 01/29/18) oxycodone (Unverified Allergy, Mild, 01/29/18) prochlorperazine (Verified Allergy, Mild, DIZZY, 01/29/18) promethazine (Verified Allergy, Mild, 01/29/18) Gadolinium-Containing Contrast Medi (Verified Allergy, Unknown, 01/29/18) misoprostol (Verified Allergy, Unknown, 01/29/18) red dye (Verified Allergy, Unknown, 01/29/18) Uncoded Allergies: EGGS (Allergy, Mild, SWELLING, 12/07/06) LETTUCE (Allergy, Mild, SWELLS LIVER, 12/07/06) PEANUTS (Allergy, Mild, ABD CRAMPS, 12/07/06) CADAVER PRODUCTS (Adverse Reaction, Intermediate, 01/18/15) "INTERNAL PLASTICS" (Adverse Reaction, Unknown, SWELLING, 01/29/18) "MY BODY REJECTS THEM" Home Meds Active Scripts Ketorolac Tromethamine (KETOROLAC TROMETHAMINE) 10 Mg Tab, 10 MG PO Q6H PRN for PAIN, #10 TAB TAKE ONE TABLET BY MOUTH EVERY SIX HOURS FOR PAIN Prov:CELSO DUARTE DO 01/29/18 Prednisone (PREDNISONE) 20 Mg Tablet, 40 MG PO QDAY for 7 Days, #14 Prov:CELSO DUARTE DO 01/29/18 Cefdinir 300 Mg Cap (OMNICEF 300 MG CAP (OR EQUIV)) 300 Mg Capsule, 300 MG PO BID for infection, #20 CAPSULE Prov:CELSO DUARTE DO 01/29/18 Methocarbamol (ROBAXIN-750) 750 Mg Tablet, 1 TAB PO TID PRN for muscle spasm relief, #20 Prov:CELSO DUARTE DO 01/29/18 Prazosin Hcl (MINIPRESS) 1 Mg Capsule, 1 MG PO BID, #60 CAPSULE Prov:ROBLES CURRAN 08/08/17 Cranberry Conc/C/Bacill Coag (AZO CRANBERRY TABLET) 1 Each Tablet, 1 EACH PO BID, #15 TAB Prov:ROBLES CURRAN 08/08/17 Polymyxin B Sulf/Trimethoprim (POLYTRIM EYE DROPS) 10 Ml Drops, 10 ML OP TID for 5 Days, #1 BOTTLE Prov:EVERT RANDALL MD 03/27/17 Reported Medications Levothyroxine Sodium (SYNTHROID) 150 Mcg Tablet, 150 MCG PO QDAY 01/29/18 Cholecalciferol (Vitamin D3) (VITAMIN D3) 1,000 Unit Tablet, 1000 UNIT PO, TAB 03/27/17 Guaifenesin (MUCINEX) 600 Mg Tablet.er, 600 MG PO 03/27/17 Discontinued Scripts Fluconazole (DIFLUCAN) 150 Mg Tablet, 150 MG PO QDAY, #2 TAB Take one tab today and may repeat in 48 hours if there is no improvement. Prov:ROBLES CURRAN 08/08/17 Phenazopyridine Hcl (PHENAZOPYRIDINE HCL) 100 Mg Tablet, 100 MG PO TID, #15 TAB Prov:ROBLES CURRAN 08/08/17 Ketorolac Tromethamine (KETOROLAC TROMETHAMINE) 10 Mg Tab, 10 MG PO Q6H, #20 TAB Prov:ROBLES CURRAN 08/08/17 Moxifloxacin Hcl (AVELOX) 400 Mg Tab, 400 MG PO QDAY for 10 Days, #10 TAB 0 Refills Prov:IVA CHAPA MD 08/03/17 Methocarbamol (ROBAXIN-750) 750 Mg Tablet, 750 MG PO TID PRN for MUSCLE SPASMS, #30 TAB 0 Refills Prov:IVA CHAPA MD 08/03/17 Hydrocodone Bit/Acetaminophen (HYDROCODON-ACETAMINOPHEN 5-325) 1 Each Tablet, 1 EACH PO Q4H PRN for PAIN, #12 TAB 0 Refills Prov:IVA CHAPA MD 08/03/17 Scopolamine (TRANSDERM-SCOP) 1.5 Mg Patch, 1.5 MG TD ONCE, #3 PATCH Prov:EVERT RANDALL MD 03/27/17 Ketorolac Tromethamine (KETOROLAC TROMETHAMINE) 10 Mg Tab, 10 MG PO Q6H PRN for PAIN, #12 TAB 0 Refills Prov:IVA CHAPA MD 03/27/17 Methocarbamol (ROBAXIN-750) 750 Mg Tablet, 750 MG PO TID PRN for MUSCLE SPASMS, #30 TAB 0 Refills Prov:IVA CHAPA MD 03/27/17 Cefpodoxime Proxetil (CEFPODOXIME PROXETIL) 200 Mg Tablet, 200 MG PO BID, #20 TAB 0 Refills Prov:IVA CHAPA MD 03/27/17 Fluconazole (DIFLUCAN) 150 Mg Tablet, 150 MG PO QDAY, #1 TAB 0 Refills Prov:IVA CHAPA MD 03/27/17 Past Medical/Surgical History Patient has past medical history of migraines, mitral valve prolapse, hypertension, hyperlipidemia, bronchiectasis, Brown liver disease, either Danlos, fractures, hypothyroidism, dry skin, depression. Patient has surgical history of abdominal surgery to remove scar tissue, dental surgery. Patient denies a pertinent family medical history. Reviewed Nurses Notes: Yes Old Medical Records Reviewed: Yes Hx Smoking: No Smoking Status: Former Smoker Exposure to Second Hand Smoke?: No Hx Substance Use Disorder: No Hx Alcohol Use: No Constitutional Vital Sign - Last 24 Hours 01/29/18 21:32 Temp 97.8 Pulse 93 Resp 20 B/P (MAP) 172/98 Pulse Ox 93 O2 Delivery Room Air Physical Exam Vital signs stable, afebrile, pulse ox normal General Appearance: The patient is alert, has no immediate need for airway protection and no current signs of toxicity. HEENT: Pupils equal and round no injection. TMs normal, sinus passages are grossly erythematous with edema and purulent drainage. Oropharynx is moderate erythema without exudate Respiratory: Chest is non tender, lungs are clear to auscultation. No wheezing or rails Cardiac: regular rate and rhythm Gastrointestinal: Abdomen is soft and non tender, no masses, bowel sounds normal. Musculoskeletal: Neck: Neck is supple and non tender. No lymphadenopathy Extremities have full range of motion and are non tender. Skin: No rashes or lesions. DIFFERENTIAL DIAGNOSIS: After history and physical exam differential diagnosis was considered for headache including but not limited to subarachnoid hemorrhage, migraine headache, tension headache and infectious causes such as meningitis, pharyngitis and sinusitis. Additionallyback pain including but not limited to muscular pain, herniated disc, spine fracture, intra-abdominal causes and urinary tract infection. Medical Decision Making ED Course/Re-evaluation ED Course Patient was admitted to an examination room. H&P was done. The differential diagnoses was considered. Patient with an acute sinus infection. She'll be treated with Omnicef 300 mg twice daily. Prednisone 40 mg per day. For her back pain. Patient be given a prescription of Robaxin and tramadol for pain relief. She is advised to follow-up with her primary care physician if unimproved in 3-5 days. Decision to Disposition Date: Jan 29, 2018 Decision to Disposition Time: 21:50 Depart Departure Latest Vital Signs Vital Signs Date Time Temp Pulse Resp B/P (MAP) Pulse Ox O2 Delivery O2 Flow Rate FiO2 01/29/18 21:32 97.8 93 20 172/98 93 Room Air Impression: Primary Impression: Sinusitis Additional Impressions: Chronic back pain Leg pain, left Condition: Improved Disposition: HOME OR SELF-CARE Referrals: MEHNAZ TOMLINSON MD, FARRUKH MD New Scripts Ketorolac Tromethamine (KETOROLAC TROMETHAMINE) 10 Mg Tab 10 MG PO Q6H PRN for PAIN, #10 TAB TAKE ONE TABLET BY MOUTH EVERY SIX HOURS FOR PAIN Prov: CELSO DUARTE DO 01/29/18 Prednisone (PREDNISONE) 20 Mg Tablet 40 MG PO QDAY for 7 Days, #14 Prov: CELSO DUARTE DO 01/29/18 Cefdinir 300 Mg Cap (OMNICEF 300 MG CAP (OR EQUIV)) 300 Mg Capsule 300 MG PO BID for infection, #20 CAPSULE Prov: CELSO DUARTE Wolfgang DO 01/29/18 Methocarbamol (ROBAXIN-750) 750 Mg Tablet 1 TAB PO TID PRN for muscle spasm relief, #20 Prov: CELSO DUARTE Wolfgang DO 01/29/18 Patient Instructions: Chronic Back Pain (ED), Sinusitis (ED) Additional Instructions: Follow-up with primary care if unimproved in 3-5 days Problem Qualifiers Primary Impression: Sinusitis Sinusitis location: maxillary Chronicity: acute Recurrence: recurrent Qualified Codes: J01.01 - Acute recurrent maxillary sinusitis Additional Impressions: Chronic back pain Back pain location: low back pain Back pain laterality: midline Sciatica presence: without sciatica Qualified Codes: M54.5 - Low back pain; G89.29 - Other chronic pain CELSO DUARTE DO Jan 29, 2018 21:33
[2018-01-29] MEDS ORDERED: LEVO150T72 PO (21:54)
[2018-01-29] MEDS ORDERED: predniSONE 20 MG TAB PO ONE (21:55)
[2018-01-29] MEDS ORDERED: METHOCARBAMOL 500 MG TAB PO ONE (21:55)
[2018-01-29] MEDS ORDERED: KETOROLAC TROM 10 MG TAB TH PO ONE (21:55)
[2018-01-29] MEDS ORDERED: CEFDINIR 300 MG CAP PO ONE (21:55)
[2018-01-29] MEDS ORDERED: METH-543 PO (21:58)
[2018-01-29] MEDS ORDERED: KET10 PO (21:58)
[2018-01-29] MEDS ORDERED: CEFD300C35 PO (21:58)
[2018-01-29] MEDS ORDERED: PRED20TA6 PO (21:58)
== END 2018-01-29 22:07 | disposition home or self-care (01) ==
LOC: ER 21:44
DX: J01.01 Acute recurrent maxillary sinusitis (principal); M54.5 Low back pain; G89.29 Other chronic pain; M79.605 Pain in left leg
CPT/HCPCS: 99283

== ENCOUNTER 2018-05-25 19:20 | Emergency (ER) | payer MEDICAID ==
[~2018-05-25 19:20] MED LIST changes: +LEVO150T72 PO; +METR500T15 PO; -METR500T54 PO; +PRED20TA6 PO
[2018-05-25 19:31] VITALS: BP 174/95
--- NOTE | 2018-05-25 19:54 | ER Report ---
History and Physical Time Seen By MD: 19:44 Hx. of Stated Complaint: PATIENT STATES SHE FELL ON HER FRONT SIDE WHILE TRYING TO WALK INTO A BUILDING TO GO TO THE BATHROOM. HPI/ROS CHIEF COMPLAINT: fall, pain in chest, abdomen, left extremities. HISTORY OF PRESENT ILLNESS: This is a 57 year old female. She fell today. Tr ipped on shoelaces when walking into local hotel to use the bathroom. Tried to catch herself and got her hands in front of her, but still landed fully on her chest and abdomen, twisting to the left side a little. Complaining of breast/rib pain, abdominal pain, left shoulder/elbow/wrist pain, left hip and knee pain. Also concerned about another sinus infection, has sinus problems chronically, asks for antibiotics at almost every visit. Says this is again present. She is sure that she has broken multiple bones with this fall, but was able to walk in the the ER. She is short of breath from the fall. Has left breast pain. Has low back pain. Denies neck pain. Denies headache or head injury with this. 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 She reports spasming in the muscles, especially the hip. Allergies: Coded Allergies: Soy (Verified Allergy, Severe, INTESTINAL BLEEDING, KIDNEY SWELLING, 05/25/18) Sulfa (Sulfonamide Antibiotics) (Verified Allergy, Severe, SWELLING LIPS, RASH, 05/25/18) iodine (Verified Allergy, Severe, SWELLS THROAT, 05/25/18) ciprofloxacin (Unverified Allergy, Intermediate, UNKNOWN, 05/25/18) alcohol (Verified Allergy, Mild, TIGHTNESS IN THROAT, 05/25/18) oxycodone (Unverified Allergy, Mild, 05/25/18) prochlorperazine (Verified Allergy, Mild, DIZZY, 05/25/18) promethazine (Verified Allergy, Mild, 05/25/18) Gadolinium-Containing Contrast Medi (Verified Allergy, Unknown, 05/25/18) misoprostol (Verified Allergy, Unknown, 05/25/18) red dye (Verified Allergy, Unknown, 05/25/18) Uncoded Allergies: EGGS (Allergy, Mild, SWELLING, 12/07/06) LETTUCE (Allergy, Mild, SWELLS LIVER, 12/07/06) PEANUTS (Allergy, Mild, ABD CRAMPS, 12/07/06) CADAVER PRODUCTS (Adverse Reaction, Intermediate, 01/18/15) "INTERNAL PLASTICS" (Adverse Reaction, Unknown, SWELLING, 01/29/18) "MY BODY REJECTS THEM" Home Meds Active Scripts Lipase/Protease/Amylase (LETTY ROBERTS 12,000 UNITS CAPSULE) 1 Each Capsule., 1 EACH PO TIDAC, #90 CAP 0 Refills Prov:IVA CHAPA MD 05/25/18 Ketorolac Tromethamine (KETOROLAC TROMETHAMINE) 10 Mg Tab, 10 MG PO Q6H PRN for PAIN, #12 TAB 0 Refills Prov:IVA CHAPA MD 05/25/18 Cyclobenzaprine Hcl (CYCLOBENZAPRINE HCL) 10 Mg Tablet, 10 MG PO Q8H PRN for MUSCLE SPASMS, #20 TAB 0 Refills Prov:IVA CHAPA MD 05/25/18 Prazosin Hcl (MINIPRESS) 1 Mg Capsule, 1 MG PO BID, #60 CAPSULE Prov:ROBLES CURRAN [facility] 08/08/17 Cranberry Conc/C/Bacill Coag (AZO CRANBERRY TABLET) 1 Each Tablet, 1 EACH PO BID, #15 TAB Prov:ROBLES CURRAN [facility] 08/08/17 Reported Medications Levothyroxine Sodium (SYNTHROID) 150 Mcg Tablet, 150 MCG PO QDAY 01/29/18 Cholecalciferol (Vitamin D3) (VITAMIN D3) 1,000 Unit Tablet, 1000 UNIT PO, TAB 03/27/17 Guaifenesin (MUCINEX) 600 Mg Tablet.er, 600 MG PO 03/27/17 Discontinued Scripts Ketorolac Tromethamine (KETOROLAC TROMETHAMINE) 10 Mg Tab, 10 MG PO Q6H PRN for PAIN, #10 TAB TAKE ONE TABLET BY MOUTH EVERY SIX HOURS FOR PAIN Prov:CELSO DUARTE DO 01/29/18 Prednisone (PREDNISONE) 20 Mg Tablet, 40 MG PO QDAY for 7 Days, #14 Prov:CELSO DUARTE DO 01/29/18 Cefdinir 300 Mg Cap (OMNICEF 300 MG CAP (OR EQUIV)) 300 Mg Capsule, 300 MG PO BID for infection, #20 CAPSULE Prov:CELSO DUARTE DO 01/29/18 Methocarbamol (ROBAXIN-750) 750 Mg Tablet, 1 TAB PO TID PRN for muscle spasm relief, #20 Prov:CELSO DUARTE DO 01/29/18 Polymyxin B Sulf/Trimethoprim (POLYTRIM EYE DROPS) 10 Ml Drops, 10 ML OP TID for 5 Days, #1 BOTTLE Prov:EVERT RANDALL MD 03/27/17 Reviewed Nurses Notes: Yes Hx Smoking: No Smoking Status: Former Smoker Exposure to Second Hand Smoke?: No Hx Substance Use Disorder: No Hx Alcohol Use: No Constitutional Vital Sign - Last 24 Hours 05/25/18 05/25/18 05/25/18 05/25/18 19:31 19:50 20:05 20:55 Temp 98.1 Pulse 90 80 78 80 Resp 16 B/P (MAP) 174/95 Pulse Ox 93 91 90 93 O2 Delivery Room Air 05/25/18 21:25 Pulse 78 Pulse Ox 92 Physical Exam General Appearance: Alert, acute distress and anxiety, pressured speech, Tangential and difficult to re-direct. Eyes: Pupils equal and round no injection. ENT: Moist mucous membranes. Poor dentition. No rhinorrhea, pain complained mainly in left maxillary area. Neck: supple, non-tender. Respiratory: Tenderness over chest wall and breast on left side ribs diffusely, with sternal pain as well. Lungs are clear. Cardiac: regular rate and rhythm. Normal peripheral perfusion. Gastrointestinal: Abdomen is diffusely tender as well with palpation, more so on the left. Has left CVA tenderness as well. Musculoskeletal: Pain in left shoulder, left elbow and left wrist. Pain in left hip and left knee. All pain diffuse in the joints, with active and passive range of motion and appears out of proportion to my palpation, whether light or firm. Right side is not tender. No tenderness in neck and upper thoracic spine. Skin: Warm and dry. Has a very small abrasion on anterior left knee. DIFFERENTIAL DIAGNOSIS: After history and physical exam differential diagnosis was considered for fall with concern for injuries as noted above. Also concern for sinus infection. Medical Decision Making Data Points Result Diagram: 05/25/18 2034 Laboratory Hematology Test 05/25/18 19:34 05/25/18 22:57 Urine Color Straw Urine Clarity Clear Urine pH 6.0 pH (4.8-9.5) Urine Specific [place] 1.002 Urine Protein Negative mg/dL (NEGATIVE) Urine Glucose (UA) Negative mg/dL (NEGATIVE) Urine Ketones Negative mg/dL (NEGATIVE) Urine Blood Small (NEGATIVE) Urine Nitrite Negative (NEGATIVE) Urine Bilirubin Negative (NEGATIVE) Urine Urobilinogen Negative mg/dL (0.2-1.9) Urine Leukocyte Esterase Negative (NEGATIVE) Urine RBC <1 /HPF (0-2/HPF) Urine WBC 1 /HPF (0-5/HPF) Urine Squamous Epithelial Cells Few /LPF (</=FEW) Urine Bacteria Negative /HPF (NONE-FEW) Urine Mucus None /HPF (NONE-FEW) Sodium Level 137 mmol/L (137-145) Potassium Level 4.1 mmol/L (3.5-5.0) Chloride Level 104 mmol/L (98-107) Carbon Dioxide Level 24 mmol/L (22-31) Blood Urea Nitrogen 20 mg/dl (7-18) Creatinine 0.70 mg/dl (0.52-1.04) Glomerular Filtration Rate Calc > 60.0 Random Glucose 96 mg/dl (75-110) Calcium Level 9.3 mg/dl (8.4-10.2) Magnesium Level 1.8 mg/dl (1.7-2.2) Total Bilirubin 0.3 mg/dl (0.2-1.3) Aspartate Amino Transf (AST/SGOT) 25 U/L (0-35) Alanine Aminotransferase (ALT/SGPT) 51 U/L (0-56) Alkaline Phosphatase 69 U/L (0-126) Total Protein 6.8 g/dl (6.3-8.2) Albumin 4.4 g/dl (3.5-5.0) Chemistry Test 05/25/18 19:34 05/25/18 22:57 Urine Color Straw Urine Clarity Clear Urine pH 6.0 pH (4.8-9.5) Urine Specific [place] 1.002 Urine Protein Negative mg/dL (NEGATIVE) Urine Glucose (UA) Negative mg/dL (NEGATIVE) Urine Ketones Negative mg/dL (NEGATIVE) Urine Blood Small (NEGATIVE) Urine Nitrite Negative (NEGATIVE) Urine Bilirubin Negative (NEGATIVE) Urine Urobilinogen Negative mg/dL (0.2-1.9) Urine Leukocyte Esterase Negative (NEGATIVE) Urine RBC <1 /HPF (0-2/HPF) Urine WBC 1 /HPF (0-5/HPF) Urine Squamous Epithelial Cells Few /LPF (</=FEW) Urine Bacteria Negative /HPF (NONE-FEW) Urine Mucus None /HPF (NONE-FEW) Glomerular Filtration Rate Calc > 60.0 Calcium Level 9.3 mg/dl (8.4-10.2) Magnesium Level 1.8 mg/dl (1.7-2.2) Total Bilirubin 0.3 mg/dl (0.2-1.3) Aspartate Amino Transf (AST/SGOT) 25 U/L (0-35) Alanine Aminotransferase (ALT/SGPT) 51 U/L (0-56) Alkaline Phosphatase 69 U/L (0-126) Total Protein 6.8 g/dl (6.3-8.2) Albumin 4.4 g/dl (3.5-5.0) Urinalysis Test 05/25/18 19:34 Urine Color Straw Urine Clarity Clear Urine pH 6.0 pH (4.8-9.5) Urine Specific [place] 1.002 Urine Protein Negative mg/dL (NEGATIVE) Urine Glucose (UA) Negative mg/dL (NEGATIVE) Urine Ketones Negative mg/dL (NEGATIVE) Urine Blood Small (NEGATIVE) Urine Nitrite Negative (NEGATIVE) Urine Bilirubin Negative (NEGATIVE) Urine Urobilinogen Negative mg/dL (0.2-1.9) Urine Leukocyte Esterase Negative (NEGATIVE) Urine RBC <1 /HPF (0-2/HPF) Urine WBC 1 /HPF (0-5/HPF) Urine Squamous Epithelial Cells Few /LPF (</=FEW) Urine Bacteria Negative /HPF (NONE-FEW) Urine Mucus None /HPF (NONE-FEW) EKG/Imaging Imaging CT obtained: Sinus, chest/abdomen/pelvis without contrast. Results: No acute abnormality noted. The study was read by the radiologist and I was able to review the report. I viewed the images myself on the PACS system, and reviewed these with the patient as well. X-ray: Shoulder, elbow, wrist, knee on the left was obtained. I viewed the images myself on the PACS system. My interpretation of the images is: No acute abnormality. The radiologist interpretation had no clinically significant variation from this interpretation. ED Course/Re-evaluation ED Course Imaging obtained as above is negative. Reviewed with patient. She does not believe me. Reviewed the images with her and the radiology report. She keeps pointing out things on the CT scan, not knowing what things are, and sure they represent something very bad. Upset that the scan does not show chronic changes that she 'knows' are there. Specifically mentions having an MRI of her left buttock a few months ago that showed bone marrow swelling and signs of infection from a puncture wound she had in the past. She has me re-evaluate the area. I see a red margaret on the skin, but no nodules on palpation, but she says that there is a large mass there. She requests antibiotics for this. Recommended follow-up with her doctor that did the MRI or another orthopedic or infectious disease specialist. She says she does not like the doctor that did this. Recommended the infectious disease specialists in [facility], or [place], but she says she cannot get in to see them, does not want to see a local orthopedic surgeon. Recommended to her that if she did have a problem like this, the next step would be to see one of these specialists. She asks about her cramping and asks for Toradol and Flexeril and I let her know this would be fine. She requests a Tetanus booster, which is alright as well. She requests gastroenterology referral to a GI specialist in [place] which is fine. Askes for Creon which has helped with her nutrition in the past and a nutritional supplement, and I don't have a problem with this. Asks if we can test her electrolytes to make sure spasming is not from this and her CMP and Mg were normal. Significant difficulty trying to get blood work, very anxious about needle sticks and yelling at the nurse and lab techs as they try to obtain this. Asked for some other chronic GI meds which I told her she would need to see her GI doctor first. Very concerned about jaundice which I do not see, nor do I see icterus present. 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 Asks again about the past puncture wound in buttock area and again referred back to her heather brown. Discussion goes around these various topics multiple times. She is in disbelief that her CT scan of her sinuses does not show acute sinus disease. It does show some chronic changes from past procedures and mild chronic inflammation, but no sign of infection. Recommended seeing ENT if she is having further concerns about this. Decision to Disposition Date: May 25, 2018 Decision to Disposition Time: 22:57 Depart Departure Latest Vital Signs Vital Signs Date Time Temp Pulse Resp B/P (MAP) Pulse Ox O2 Delivery O2 Flow Rate FiO2 05/25/18 21:25 78 92 05/25/18 19:31 98.1 16 174/95 Room Air Impression: Primary Impression: Multiple contusions Additional Impressions: Venkata-Danlos syndrome Chronic nausea Condition: Improved Disposition: HOME OR SELF-CARE New Scripts Lipase/Protease/Amylase (LETTY ROBERTS 12,000 UNITS CAPSULE) 1 Each Capsule.dr 1 EACH PO TIDAC, #90 CAP 0 Refills Prov: IVA CHAPA MD 05/25/18 Ketorolac Tromethamine (KETOROLAC TROMETHAMINE) 10 Mg Tab 10 MG PO Q6H PRN for PAIN, #12 TAB 0 Refills Prov: IVA CHAPA MD 05/25/18 Cyclobenzaprine Hcl (CYCLOBENZAPRINE HCL) 10 Mg Tablet 10 MG PO Q8H PRN for MUSCLE SPASMS, #20 TAB 0 Refills Prov: IVA CHAPA MD 05/25/18 Patient Instructions: Contusion in Adults (ED) Additional Instructions: Toradol 10 mg, one every 6 hours as needed for pain Flexeril 10 mg, one every 8 hours as needed for muscle spasm Apply ice 20 minutes every 1-2 hours while awake. An BA wrap can be used on the joints for compression to help reduce swelling. Rest the injured areas, keep them elevated while at rest. Begin gentle range of motion exercises. Follow-up with your orthopedic surgeon or infectious disease for your other concerns regarding the past puncture wound. Follow-up with gastroenterology for your concerns regarding you nutrition and GI problems. We have provided a prescription for referral to GI to give them once you call and arrange for an appointment. A temporary prescription for Creon has been provided. A temporary prescription for your nutritional supplement. Problem Qualifiers IVA CHAPA MD May 25, 2018 19:54
--- NOTE | 2018-05-25 20:48 | RADIOLOGY IMAGING REPORT ---
FACILITY: [facility] PATIENT NAME: Charo Block : 1960 MR: [id number] V: [id number] EXAM DATE: ORDERING PHYSICIAN: IVA CHAPA TECHNOLOGIST: Location: [facility] Patient: Charo Block : 1960 Visit/Account:[id number] Date of Sevice: 05/25/2018 EXAMINATION: CT sinus without IV contrast HISTORY: Sinus irritation, fall. COMPARISON: None. TECHNIQUE: Contiguous axial images were obtained through the paranasal sinuses without intravenous c ontrast administration. Coronal and sagittal reformatted images were obtained from the axial source d osmel. One of the following dose optimization techniques was utilized in the performance of this exam: Autom ated exposure control; adjustment of the mA and/or kV according to the patient's size; or use of an i terative reconstruction technique. Specific details can be referenced in the facility's radiology C T exam operational policy. FINDINGS: Maxillary sinuses: Previous bilateral maxillary antrostomies and uncinectomies. Mild mucosal thicken ing in both maxillary sinuses inferiorly. Frontal sinuses: Negative. Ethmoid air cells: Partial bilateral ethmoidectomies with mild mucosal thickening bilaterally, left g reater than right. Sphenoid sinuses: The sphenoid sinuses are clear. There is aeration of both anterior clinoid process es by the sphenoid sinuses. Ostiomeatal units: Patent. Nasal septum/nasal cavity: Previous septoplasty and partial middle turbinectomies. Orbits: Negative. Visualized intracranial contents/soft tissues: Negative. TMJs: Negative. IMPRESSION: 1. Previous bilateral maxillary antrostomies and uncinectomies, partial ethmoidectomies, septoplasty and partial bilateral middle turbinectomies. 2. Mild nonobstructive inflammation of the bilateral maxillary sinuses and ethmoid region. Report Dictated By: Neema Mcwilliams MD at 05/25/2018 8:42 PM Report E-Signed By: Neema Mcwilliams MD at 05/25/2018 8:46 PM WSN:[id number]
--- NOTE | 2018-05-25 21:11 | RADIOLOGY IMAGING REPORT ---
FACILITY: [facility] - [place] PATIENT NAME: Charo Block : 1960 MR: [id number] V: [id number] EXAM DATE: ORDERING PHYSICIAN: IVA CHAPA TECHNOLOGIST: Location: [facility] - [place] Patient: Charo Block : 1960 Visit/Account:[id number] Date of Sevice: 05/25/2018 EXAMINATION: CT chest, abdomen, and pelvis without IV contrast HISTORY: Fall. TECHNIQUE: Axial CT images of the chest, abdomen, and pelvis were obtained without IV contrast, wit h coronal and sagittal 2D reconstructed images. One of the following dose optimization techniques was utilized in the performance of this exam: Autom ated exposure control; adjustment of the mA and/or kV according to the patient's size; or use of an i terative reconstruction technique. Specific details can be referenced in the facility's radiology C T exam operational policy. COMPARISON: CT abdomen/pelvis without contrast 08/08/2017. FINDINGS: Evaluation of the solid and viscus parenchymal organs and vascular structures is limited without the benefit of IV contrast. Chest: Lungs and pleura: Calcified granuloma in the left lower lobe. The lungs are otherwise clear. No foca l consolidation or evidence of pulmonary contusion. No pleural effusion or pneumothorax. Mediastinum and marie: Negative. Heart, aorta, and great vessels: Normal caliber thoracic aorta. Normal heart size. No pericardial ef fusion. Chest lymph node assessment: Negative. Bones: No acute osseous findings in the chest. Scattered degenerative changes along the thoracic spi ne. Chest wall: Negative. Lower neck: Negative. Abdomen/pelvis: Liver: Negative. Gallbladder and bile ducts: Negative. Spleen: Negative. Pancreas: Negative. Adrenal glands: Negative. Kidneys: Negative. No hydronephrosis or urinary calculi. Bowel and peritoneum: The small bowel and colon are normal in caliber. Scattered colonic diverticulo sis. Normal appendix. No free fluid or free intraperitoneal air. Pelvic structures: Negative. Lymph node assessment: Negative. Vessels: Mild vascular calcifications. Normal caliber abdominal aorta. Musculoskeletal/body wall: No evidence of acute fracture in the lumbar spine or bony pelvis. Scattere d degenerative changes along the lumbar spine. Prior anterior and posterior fusion at L5-S1 with fixa tion hardware. The bony pelvis appears intact. Stable lipoma along the adductor musculature of the up per medial right thigh. IMPRESSION: 1. No acute traumatic findings in the chest, abdomen, or pelvis by noncontrast CT imaging. 2. The lungs are clear. 3. Colonic diverticulosis. Report Dictated By: Steven Trevino MD at 05/25/2018 8:47 PM Report E-Signed By: Steven Trevino MD at 05/25/2018 9:08 PM WSN:[id number]
--- NOTE | 2018-05-25 21:23 | RADIOLOGY IMAGING REPORT ---
FACILITY: [facility] [place]IENT NAME: Charo Block : 1960 MR: [id number] V: [id number] EXAM DATE: ORDERING PHYSICIAN: IVA CHAPA TECHNOLOGIST: Location[place] [facility] [place] Patient: Charo Block : 1960 Visit/Account:[id number] Date of Sevice: 05/25/2018 EXAMINATION: Left knee 4 views HISTORY: Fall. Left knee pain. COMPARISON: 01/18/2015. FINDINGS: Bones of the left knee demonstrate normal alignment. No evidence of acute fracture or dislocation. Mild medial joint space narrowing with marginal osteophyte formation. The lateral joint space is pres erved. Degenerative spurring along the tibial spines. Soft tissues are radiographically unremarkable. No significant knee joint effusion is visualized. IMPRESSION: No acute osseous findings at the left knee. Mild chronic degenerative changes in the med ial compartment. Report Dictated By: Steven Trevino MD at 05/25/2018 9:17 PM Report E-Signed By: Steven Trevino MD at 05/25/2018 9:19 PM WSN:[id number]
--- NOTE | 2018-05-25 21:27 | RADIOLOGY IMAGING REPORT ---
FACILITY: [facility] - [place] PATIENT NAME: Charo Block : 1960 MR: [id number] V: [id number] EXAM DATE: ORDERING PHYSICIAN: IVA CHAPA TECHNOLOGIST: Location: [facility] - [place] Patient: Charo Block : 1960 Visit/Account:[id number] Date of Sevice: 05/25/2018 EXAMINATION: Left wrist 3 views HISTORY: Fall. Left wrist pain. COMPARISON: 01/18/2015. FINDINGS: Bones of the left wrist demonstrate normal alignment. No evidence of acute fracture or dislocation. Mild degenerative changes at the first CMC joint with osteophyte formation. Soft tissues are radiographically unremarkable. IMPRESSION: No acute osseous findings at the left wrist. Report Dictated By: Steven Trevino MD at 05/25/2018 9:19 PM Report E-Signed By: Steven Trevino MD at 05/25/2018 9:23 PM WSN:[id number]
--- NOTE | 2018-05-25 21:28 | RADIOLOGY IMAGING REPORT ---
FACILITY: [facility] - [place] PATIENT NAME: Charo Block : 1960 MR: [id number] V: [id number] EXAM DATE: ORDERING PHYSICIAN: IVA CHAPA TECHNOLOGIST: Location: [facility] [place] Patient: Charo Block : 1960 Visit/Account:[id number] Date of Sevice: 05/25/2018 EXAMINATION: Left elbow 3 views HISTORY: Fall. Left elbow pain. COMPARISON: None. FINDINGS: Bones of the left elbow demonstrate normal alignment. No evidence of acute fracture or dislocation. Mild degenerative changes at the radiocapitellar joint. Normal mineralization. Soft tissues are radiographically unremarkable. No significant elbow joint effusion is visualized. IMPRESSION: No acute osseous findings at the left elbow. Mild chronic degenerative changes. Report Dictated By: Steven Trevino MD at 05/25/2018 9:23 PM Report E-Signed By: Steven Trevino MD at 05/25/2018 9:25 PM WSN:[id number]
--- NOTE | 2018-05-25 21:29 | RADIOLOGY IMAGING REPORT ---
FACILITY: [facility] [place] PATIENT NAME: Charo Block : 1960 MR: [id number] V: [id number] EXAM DATE: ORDERING PHYSICIAN: IVA CHAPA TECHNOLOGIST: [place] [facility]o [place] : 1960 Visit/Account:[id number] Date of Sevice: 05/25/2018 EXAMINATION: Left shoulder 2 views. HISTORY: Fall. Left shoulder pain. COMPARISON: None FINDINGS: No evidence of acute fracture or dislocation about the left shoulder. Normal alignment at the glenohu meral and acromioclavicular joints. The subacromial space is preserved. Visualized upper left ribs ap pear intact. IMPRESSION: Negative left shoulder. Report Dictated By: Steven Trevino MD at 05/25/2018 9:25 PM Report E-Signed By: Steven Trevino MD at 05/25/2018 9:25 PM WSN:[id number]
[2018-05-25] MEDS ORDERED: CYCLOBENZAPRINE HCL 10 MG TH PO ONE (22:10)
[2018-05-25] MEDS ORDERED: CYCLOBENZAPRINE HCL 10 MG TAB PO ONE (22:10)
[2018-05-25] MEDS ORDERED: KETOROLAC TROM 10 MG TAB TH PO ONE (22:10)
[2018-05-25] MEDS ORDERED: DIPHTH/TETANUS/ACEL. PERTUSSIS IM ONLY ONE (22:10)
[2018-05-25] MEDS ORDERED: KETOROLAC 30 MG/ML VIAL IM ONE (22:10)
[2018-05-25] MEDS ORDERED: CYCL10TA29 PO (23:00)
[2018-05-25] MEDS ORDERED: LIPA1CAP61 PO (23:00)
[2018-05-25] MEDS ORDERED: KET10 PO (23:00)
== END 2018-05-26 00:10 | disposition home or self-care (01) ==
LOC: ER 19:33
DX: Q79.6 Ehlers-Danlos syndromes (principal); R11.0 Nausea; R06.02 Shortness of breath; M25.532 Pain in left wrist; M25.522 Pain in left elbow; R10.9 Unspecified abdominal pain; M25.552 Pain in left hip; M25.562 Pain in left knee; R68.84 Jaw pain
CPT/HCPCS: 36415; 70486; 71250; 73030; 73080; 73110; 73564; 74176; 81001; 83735; 90471; 90715; 96372; 99284; J1885; 82040; 82247; 82310; 82374; 82435; 82565; 82947; 84075; 84132; 84155; 84295; 84450; 84460; 84520

== ENCOUNTER 2018-06-12 16:34 | Outpatient (RCR) | payer MEDICAID ==
[~2018-06-12 16:34] MED LIST changes: +CYCL10TA29 PO; +LIPA1CAP61 PO
== END 2018-06-13 17:15 | disposition home or self-care (01) ==
LOC: ONC 16:34
PROVIDERS: ATTEND Nurse Practitioner
DX: Z02.9 Encounter for administrative examinations, unspecified (principal)

== ENCOUNTER → 2018-08-16 | Outpatient (CLI) | payer MEDICAID | LOC: LAB 13:52 | PROVIDERS: ATTEND Internal Medicine Infectious Disease | DX: Z02.9 Encounter for administrative examinations, unspecified (principal) ==